=== PATIENT | male | born 1975 | race Caucasian/White ===

== ENCOUNTER 2024-08-14 12:01 | Emergency (ER) | payer OTHER, SELFPAY ==
[2024-08-14 12:13] VITALS: BP 160/88; PULSE 89; O2SAT 96
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
[2024-08-14 12:25] VITALS: BP 147/80; PULSE 104; RESP 18; TEMP 36.9; O2SAT 95; BMI 22.7
[2024-08-14 12:53] LABS: MANUAL DIFF FLAG NO
[2024-08-14 12:54] LABS: Basophils Percent Auto 0.4 % (0-2); Eosinophils Percent Auto 0.2 % (0-4); Hematocrit 36.6 % (42.0-52.0); Imm Gran Abs Auto 0.03 X10*3/uL (0.00-0.03); Imm Gran Pct Auto 0.3 % (0.0-0.4); Lymphocytes Absolute Auto 1.1 X10*3/uL (1.2-4.9); Lymphocytes Percent Auto 11.2 % (20-40); Mean Corpuscular HGB Conc 32.8 g/dl (31.0-36.0); Mean Corpuscular Hemoglobin 27.2 pg (27.0-33.0); Mean Platelet Volume 11.8 fL (9.4-12.4); Monocytes Absolute Auto 0.7 X10*3/uL (0.1-1.2); Monocytes Percent Auto 6.7 % (2-11); Neutrophils Percent Auto 81.2 % (45-73); Platelet Count 249 X10*3/uL (160-400); Red Blood Count 4.41 X10*6/uL (4.60-5.80); Red Cell Distribution Width 12.7 % (11.0-16.0); White Blood Count 9.9 X10*3/uL (4.8-10.8)
[2024-08-14 13:11] LABS: Alanine Aminotransferase 23 U/L (0-40); Albumin Level 4.6 g/dL (3.5-5.0); Alkaline Phosphatase 50 U/L (39-117); Anion Gap 12 (12-20); Aspartate Amino Transferase 32 U/L (5-37); Bilirubin Direct 0.2 mg/dL (0.0-0.5); Bilirubin Total 0.4 mg/dL (0.0-1.0); Blood Urea Nitrogen 14 mg/dL (9-16); Calcium 9.8 mg/dL (8.4-10.2); Carbon Dioxide 32 mmol/L (22-29); Chloride 103 mmol/L (96-108); Creatinine Clr Calc Pharmacy 76.4; Estimated Glomerular Filt Rate > 60; Ethanol < 10 mg/dL; Glucose Random 97 mg/dL (60-115); Potassium 3.7 mmol/L (3.3-5.1); Sodium 143 mmol/L (135-145)
[2024-08-14 13:15] LABS: Appearance Urine Clear; Color Urine Dark Yellow; Glucose Urine UA Negative (Negative); Leukocyte Esterase Urine Negative (Negative); Nitrite Urine Negative (Negative); Specific Gravity - Urine >= 1.030 (1.005-1.025); UMIC TRIGGER UACC YES; Urine Blood Negative (Negative); Urine Ketones 15 mg/dL (Negative); Urine Protein 30 (1+) mg/dL (Neg-Trace)
[2024-08-14 13:22] LABS: Bacteria Urine None Seen (None Seen); Hyaline Casts Urine 0-2 /LPF (0-2); RBC Urine 0-2 /HPF (0-2); Squamous Epithelial Cell Urine 0-2 /HPF (0-2); WBC Urine 0-5 /HPF (0-5)
[2024-08-14 13:25] LABS: Amphetamine Screen Urine Not Detected (Not Detect); Barbiturates, Urine Not Detected (Not Detect); Benzodiazepines Screen Urine Not Detected (Not Detect); Buprenorphine Scr Not Detected (Not Detect); Cannabinoid Screen Urine POSITIVE (Not Detect); Cocaine Screen Urine Not Detected (Not Detect); Fentanyl, urine Not Detected (Not Detect); Methadone Screen, Urine Positive (Not Detect); Opiate Screen Urine Not Detected (Not Detect); Oxycodone Screen Urine Not Detected (Not Detect); Phencyclidine Screen Urine Not Detected (Not Detect)
[2024-08-14 13:39] LABS: Influenza A PCR NEGATIVE (Negative); Influenza B PCR NEGATIVE (Negative); Resp Syncy Virus RNA Qual PCR NEGATIVE (Negative); SARS COV2 PCR INHOUSE NEGATIVE (Negative)
[2024-08-14 14:10] LABS: Folate 14.2 ng/mL (> or = 4.0); Vitamin B12 216 pg/mL (200-900)
--- OUTSIDE RECORDS SUMMARY | 2024-08-14 15:24 | XMS_ITS ---
Author Organization [facility] Address [address], [place] [id number] Care Team Providers Care Clinical Data Specialist Name Role Phone No, PCP Primary Care Provider Desiree Barrios Encounters Encounter Location Date Provider Diagnosis [facility] [address] [place] [phone] 12/24/2023 Desiree Hunt Plan Of Treatment No Information Progress Notes * Chico OWENS ADOB: [birth year] (48 yo M)Acc No.[id number]:12/24/2023 Case Management Patient:?Chico Owens Provider:?Desiree Hunt :1975???Age:48 Y???Sex:Male Miles e:12/24/2023 Address:[facility] Pcp:PCP Raissa Subjective: * Chief Complaints: * ??? * HPI: ???Social Service:?Date of encounter?[id number].?Referral Source?walk-in.?Interpretation for medical provider?housing, Mail seed cone picker.?Follow-up Required:?yes, Type of follow- up:CM.?Pt comprehension?Pt agrees with plan, Patient understood process and assisted with process.?Action taken (old)?form completion: intake, mail intake, authorization to release info.? * Medical History:? Objective: Assessment: Plan: * Treatment: * Images: Billing Information: * Visit Code:? * Procedure Codes:? Care Plan Details* * Sign off status: Completed true * Provider:?Desiree Hunt Date:? Generated for Almita gilbert/Charley/eTransmitting on:?08/14/2024 03:24 PM EST History and Physical Notes * HPI (History of Present Illness) Category Sub-Category Detail Notes Social Service Referral Source walk-in Interpretation for medical provider hous ing, Mail seed cone picker Action taken (old) form completion: int facundo, mail intake, authorization to release info Follow-up Required: yes, Type of follow- up:CM Pt comprehension Pt agrees with plan, Patient understood process and assisted with process Date of encounter [id number]
--- OUTSIDE RECORDS SUMMARY | 2024-08-14 15:24 | XMS_ITS | Patient Health Record ---
Author Organization [facility] Address [address], [place] [phone] Care Team Providers Care City Magistrate Name Role Phone No, PCP Primary Care Provider Desiree Barrios Unavailable Reason For Referral No Information Encounters Encounter Location Date Provider Diagnosis [facility] [address] [place], [place] [phone] 12/24/2023 Desiree Hunt [facility] [address] [place], [place] [phone] 12/21/2023 Desiree Hunt Plan Of Treatment No Information Insurance Providers Payer Name Payer Address Payer Phone Subscriber Number Group Number Insured Name Patient Relationship to Insured Coverage Start Date Coverage End Date [place] Medicaid PCC [address] [place], [place] [id number] Chico Owens Self - patient is the insured
--- OUTSIDE RECORDS SUMMARY | 2024-08-14 15:24 | XMS_ITS ---
Author Organization [facility] Address [address] [place], [place] [phone] Care Team Providers Care Devulcanizer Loader Name Role Phone No, PCP Primary Care Provider Desiree Barrios Encounters Encounter Location Date Provider Diagnosis [facility] [address] [place] [phone] 12/21/2023 Desiree Hunt Plan Of Treatment No Information Progress Notes * Chico OWENS ADOB: [birth year] (48 yo M)Acc No.[id number]:12/21/2023 Case Management Patient:?Chico Owens Provider:?Desiree Hunt :1975???Age:48 Y???Sex:Male Miles e:12/21/2023 Address:[facility] Pcp:PCP Raissa Subjective: * Chief Complaints: * ??? * HPI: ???Social Service:?Date of encounter?[id number].?Referral Source?walk-in, self.?Interpretation for medical provider?housing, Mail warehouse order picker.?Follow-up Required:?yes, Type of follow-up:CM.?Pt comprehension?Pt agrees with plan, Patient understood process and assisted with process.?Action taken (old)?form completion: intake, authorization to release info.? * Medical History:? Objective: Assessment: Plan: * Treatment: * Images: Billing Information: * Visit Code:? * Procedure Codes:? Care Plan Details* * Sign off status: Completed true * Provider:?Desiree Hunt Date:? Generated for Almita gilbert/Charley/eTransmitting on:?08/14/2024 03:24 PM EST History and Physical Notes * HPI (History of Present Illness) Category Sub-Category Detail Notes Social Service Referral Source walk-in, self Interpretation for medical provider hous ing, Mail warehouse order picker Action taken (old) form completion: int facundo, authorization to release info Follow-up Required: yes, Type of follow- up:CM Pt comprehension Pt agrees with plan, Patient understood process and assisted with process Date of encounter [phone]
[2024-08-14 16:20] VITALS: BP 194/86; PULSE 73; RESP 12; TEMP 37.2; O2SAT 97
--- NOTE | 2024-08-14 16:35 | PC.NURSE ---
patient given back belongings, ambulated off of unit with family, gait steady
== END 2024-08-14 16:35 | disposition home or self-care (01) ==
PROVIDERS: Physician Assistant; Emergency Provider Emergency Medicine
DX: F29 Unspecified psychosis not due to a substance or known physiological condition (principal); R46.2 Strange and inexplicable behavior; F19.10 Other psychoactive substance abuse, uncomplicated; Z03.818 Encounter for observation for suspected exposure to other biological agents ruled out
CPT/HCPCS: 0241U; 36415; 80048; 80076; 80307; 81001; 82607; 82746; 83735; 85025; 99282; 99284; S9485

== ENCOUNTER 2024-11-27 07:44 | Inpatient (IN) | payer MEDICAID, SELFPAY ==
[2024-11-27] VITALS (8 sets, daily range): BP systolic 122–139; BP diastolic 60–84; PULSE 76–115; RESP 16–22; TEMP 36.6–37.3; O2SAT 94–98; BMI 23.5; BMI 25.5
--- NOTE | ~2024-11-27 | CT_ITS ---
EXAMINATION: CT PELVIS WITH CONTRAST CLINICAL INFORMATION: Buttock abscess, concern for tracking. COMPARISON: None available. TECHNIQUE: Helical scanning was performed with submillimeter collimation through the pelvis with the use of oral contrast and during bolus intravenous injection of 100 mL of Omnipaque 350 intravenous contrast. Sagittal and coronal multiplanar 2-D reconstructions were obtained. This CT examination was performed using dose optimization techniques as appropriate, variously including the following: *Automated exposure control *Adjustment of mA and/or kV according to patient size (this includes techniques or standardized protocols for targeted exams where dose is matched to indication/reason for exam; i.e. extremities or head) *Use of iterative reconstruction technique FINDINGS: There is skin thickening and subcutaneous infiltration of the left inferior gluteal crease. There is no gross drainable fluid collection or abscess evident. There is no sinus tract or fistulous tract. The ischio anal fat is preserved. The anal verge, perineal soft tissues and levator ani musculature is normal in attenuation and appearance. There are a few prominent inguinal nodes more notable on the left. These are likely reactive. Intrapelvic structures are normal including the urinary bladder and prostate gland. Bowel structures appear normal. A normal appendix is visualized. There is no pelvic ascites or intrapelvic fluid collection. The aorta and iliac arteries are normal. The pelvic girdle musculature is normal in attenuation and appearance. There is no suspicious osseous abnormality. CT/CT pelvis w IV con IMPRESSION: 1. Skin thickening with subcutaneous fat infiltration involving the left inferior gluteal crease, without evidence of fistulous or sinus tract. No definite involvement of the ischio anal fat, perineal soft tissues, or anal verge. 2. No drainable fluid collection evident by CT. 3. Left inguinal lymphadenopathy, presumably reactive. Electronically signed by: Mic Harmon MD 11/27/2024 09:57 AM EDT
--- NOTE | 2024-11-27 08:05 | ED_ITS ---
HPI - General Adult General Chief complaint: Skin/Abscess/Foreign Body Stated complaint: Abscess, infection? Time Seen by Provider: 11/27/24 08:03 Source: patient and family (patient's ) Mode of arrival: ambulatory Limitations: no limitations History of Present Illness ED Provider: Leticia Kim PA-C HPI narrative: Patient is a 49 year old assigned male at with a history of IVDU presenting to the emergency department today with left buttock pain / swelling. Patient states that over the last few days he has noticed swelling to his left buttock that has only worsened and randomly drained. Patient denies any dizziness, lightheadedness, abdominal pain, nausea, vomiting, fever, chills, blurry vision, double vision, loss of vision, chest pain, difficulty breathing, shortness of breath, back pain, night sweats, pain with urination, increased urinary frequency, increased urinary urgency, blood in his urine or stool, syncope or a near syncopal episode, recent trauma or falls, bowel incontinence, bladder incontinence, or any other complaints at this time. Exacerbating factors: none Associated symptoms: denies other symptoms Related Data Allergies Allergy/AdvReac Type Severity Reaction Status Date / Time cephalexin (From Keflex) Allergy Unknown Verified 11/27/24 08:21 doxycycline Allergy Unknown Verified 11/27/24 08:21 Review of Systems 2 Constitutional: Constitutional: Reports no additional constitutional complaints, Denies chills, Denies fever(s) and Denies night sweats Eyes: Eyes: Reports no additional eye complaints, Denies blurry vision, Denies change in vision, Denies diplopia, Denies eye discharge, Denies loss of vision and Denies eye pain ENT: Denies dizziness Cardiovascular: Cardiovascular: Reports no additional cardiovascular complaints, Denies chest pain, Denies lightheadedness, Denies Loss of Consciousness and Denies dyspnea Respiratory: Respiratory: Reports no additional respiratory complaints and Denies dyspnea Gastrointestinal: Gastrointestinal: Reports no additional gastrointestinal complaints, Denies abdominal pain, Denies melena, Denies hematochezia, Denies change in bowel habits and Denies change in stool character Genitourinary: Genitourinary: Reports no additional male genitourinary complaints, Denies hematuria, Denies oliguria, Denies difficulty urinating, Denies dysuria, Denies urinary frequency, Denies urinary hesitancy, Denies urinary incontinence and Denies urinary urgency Musculoskeletal: Musculoskeletal: Reports no additional musculoskeletal complaints, Denies numbness and Denies tingling Integumentary/Breasts: Comments: left buttock swelling / redness Neurologic: Denies dizziness, Denies loss of vision, Denies numbness and Denies tingling Psychiatric: Psychiatric: Reports no additional psychiatric complaints Endocrine: Endocrine: Reports no additional endocrine complaints Hematologic/Lymphatic: Hematologic/Lymphatic: Reports no additional hematologic/lymphatic complaints Allergic/Immunologic: Allergic/Immunologic: Reports no additional allergic/immunologic complaints PMFSH Past Medical History Attestation statement: The following information was validated with the patient. (all information validated with the patient's ) Source: old records reviewed, obtained from family (patient's provided additional history and confirmed the history provided by the patient. ) and nursing notes reviewed Social History Social History Alcohol intake: never Smoked in Last 30 Days: Yes Use of substances other than those prescribed or required for medical reasons: Yes Substance Use Type: Former Substance User and Marijuana Advance Directives: No Advance Directives Information Provided: No Physical Exam ED Vital Signs: Vital Signs - 24 hr 11/27/24 08:02 11/27/24 08:15 11/27/24 09:13 Temperature 99.2 F 99.2 F 98.9 F Pulse Rate 115 H 115 H 95 Respiratory Rate 20 22 H 18 Blood Pressure 130/84 130/84 130/83 Pulse Oximetry 96 96 97 Oxygen Delivery Method Room Air Room Air Room Air 11/27/24 09:43 Temperature 98.2 F Pulse Rate 90 Respiratory Rate 18 Blood Pressure 139/76 Pulse Oximetry 97 Oxygen Delivery Method Room Air BMI result Body Mass Index 23.5 Const General: cooperative, no acute distress, alert and awake Nutritional Appearance: well nourished Orientation/consciousness: patient oriented x3 HENMT Head: Yes normal to inspection and Yes atraumatic Ears: hearing grossly normal bilaterally and external ears normal General nose exam: Normal external nose present, no nasal discharge noted and no epistaxis Face and sinus: Yes normal facial exam, No abrasion and No laceration Mouth: Normal oral and palatal mucosa present, no drooling and no muffled voice Eyes General: appearance normal, both eyes and all related structures Periorbital: periorbital findings normal Eyelids: Yes eyelids normal Conjunctivae: conjunctivae normal Pupils: Equal, round and reactive pupils present EOM: EOMs intact bilaterally Neck Neck: Yes normal visual inspection, Yes full ROM and Yes no lymphadenopathy Resp Effort & Inspection: normal respiratory effort and able to speak in complete sentences GI Other: Neuro General: patient oriented x3, moves all extremities and CN's II-XI intact bilaterally Cranial nerves: Yes Equal, round and reactive pupils present Cognition (Neuro): normal cognition Extrem General: Yes normal to inspection, Yes full ROM and Yes capillary refill normal Psych Appearance: grossly normal Mental Status: mental status grossly normal Affect: normal affect Attitude: cooperative Thought process: Normal thought process present Thought content: Normal thought content present Insight: Good insight present (Psych) Medications Administered Discontinued Medications Generic Name Dose Route Start Last Admin Trade Name Freq PRN Reason Stop Dose Admin Vancomycin HCl 1,000 mg/ 270 mls @ 270 mls/hr 11/27/24 08:20 11/27/24 10:56 Sodium Chloride IV 11/27/24 09:19 270 mls/hr ONCE ONE Administration Piperacillin Sod/Tazobactam 50 mls @ 100 mls/hr 11/27/24 08:20 11/27/24 10:35 Sod 3.375 gm/ Sodium Chloride IV 11/27/24 08:49 Infused ONCE ONE Infusion Acetaminophen 1,000 mg in 100 mls @ 400 mls/hr 11/27/24 08:20 11/27/24 09:20 Ofirmev IV 11/27/24 08:34 Infused ONCE ONE Infusion Iohexol 100 ml 11/27/24 09:39 11/27/24 09:40 Iohexol 350 Mg/Ml 100 Ml Infus..Btl IV 11/27/24 09:40 85 ml ONCE ONE Administration Ketorolac Tromethamine 15 mg 11/27/24 08:20 11/27/24 09:03 Ketorolac Tromethamine 15 Mg/Ml Vial IVPUSH 11/27/24 08:21 15 mg ONCE ONE Administration Medical Decision Making Medical Decision Making [facility] Narrative: Patient is a 49 year old assigned male at with a history of IVDU presenting to the emergency department today with left buttock pain / swelling. Patient's physical exam was as noted in the physical exam portion of this note. Patient's blood work showed a WBC count of 17.4, ESR 58, and CRP of 16.94. Patient's CT pelvis showed skin thickening with subcutaneous fat infiltration involving the left inferior gluteal crease. I was suspicious of sepsis in this patient at 0820. Patient was given IV Vancomycin and Zosyn. I spoke with the hospitalist team who agreed to admission. I explained my physical exam findings as well as all test results to the patient. I answered all questions asked by the patient. Patient and the patient's verbalized agreement and understanding with this treatment plan and admission. Differential Diagnosis Differential Diagnoses: The differential diagnosis associated with the presentation includes Abscess Cellulitis Sepsis Admission/Observation Consideration of admission/observation: Escalation of care including admission/observation considered Patient admitted as noted in the MDM Rationale portion of this note. Consult Healthcare Provider Management of the patient was discussed with: Hospitalist (agreed to admission as noted in the MDM Rationale portion of this note. ) Lab Data [facility] Lab Attestation statement: I reviewed the patient's lab results. My interpretation of these results are in the MDM Rationale portion of this note. 11/27/24 08:49 11/27/24 08:49 Labs: Lab Results 11/27/24 Range/Units 08:49 WBC 17.4 H (4.8-10.8) X10*3/uL RBC 4.67 (4.60-5.80) X10*6/uL Hgb 12.7 L (14.0-18.0) g/dl Hct 39.3 L (42.0-52.0) % MCV 84.2 (80.0-98.0) fL MCH 27.2 (27.0-33.0) pg MCHC 32.3 (31.0-36.0) g/dl RDW 12.3 (11.0-16.0) % Plt Count 228 (160-400) X10*3/uL MPV 11.5 (9.4-12.4) fL Immature Gran % (Auto) 0.4 (0.0-0.4) % Neut % (Auto) 81.3 H (45-73) % Lymph % (Auto) 9.2 L (20-40) % [place] % (Auto) 8.8 (2-11) % Eos % (Auto) 0.1 (0-4) % Baso % (Auto) 0.2 (0-2) % Lymph # (Auto) 1.6 (1.2-4.9) X10*3/uL [place] # (Auto) 1.5 H (0.1-1.2) X10*3/uL Eos # (Auto) 0.0 (0.0-0.4) X10*3/uL Baso # (Auto) 0.0 (0.0-0.2) X10*3/uL Abs Immat Gran (auto) 0.07 H (0.00-0.03) X10*3/uL Absolute Neuts (auto) 14.2 H (2.0-8.3) x10*3/uL Absolute Nucleated RBC 0.000 (0.0-0.012) X10*3/uL Nucleated RBC % (auto) 0.0 (0.0-0.2) /100WBC Smear Tech's Comments VERIFIED ESR 58 H (0-15) MM/HR Sodium 140 (135-145) mmol/L Potassium 4.2 (3.3-5.1) mmol/L Chloride 102 (96-108) mmol/L Carbon Dioxide 30 H (22-29) mmol/L Anion Gap 12 (12-20) BUN 15 (9-16) mg/dL Creatinine 1.00 (0.5-1.4) mg/dL Estim Creat Clear Calc 84.4 Estimated GFR > 60 Random Glucose 108 (60-115) mg/dL Lactic Acid 1.6 (0.5-2.0) mmol/L Calcium 9.7 (8.4-10.2) mg/dL Magnesium 1.9 (1.6-2.6) mg/dL Total Bilirubin 0.5 (0.0-1.0) mg/dL AST 20 (5-37) U/L ALT 15 (0-40) U/L Alkaline Phosphatase 64 (39-117) U/L C-Reactive Protein 16.94 H (< or = 0.50) mg/dL Total Protein 8.4 H (6.5-8.0) g/dL Albumin 4.7 (3.5-5.0) g/dL Independent Interpretation I performed an independent interpretation of an: CT Scan (pelvis) Interpretation: My interpretation is in agreement with the radiologist's impression of this imaging study. L Report Number: [id number]: Total DLP = 232.00 mGy-cm EXAMINATION: CT PELVIS WITH CONTRAST CLINICAL INFORMATION: Buttock abscess, concern for tracking. COMPARISON: None available. TECHNIQUE: Helical scanning was performed with submillimeter collimation through the pelvis with the use of oral contrast and during bolus intravenous injection of 100 mL of Omnipaque 350 intravenous contrast. Sagittal and coronal multiplanar 2-D reconstructions were obtained. This CT examination was performed using dose optimization techniques as appropriate, variously including the following: *Automated exposure control *Adjustment of mA and/or kV according to patient size (this includes techniques or standardized protocols for targeted exams where dose is matched to indication/reason for exam; i.e. extremities or head) *Use of iterative reconstruction technique FINDINGS: There is skin thickening and subcutaneous infiltration of the left inferior gluteal crease. There is no gross drainable fluid collection or abscess evident. There is no sinus tract or fistulous tract. The ischio anal fat is preserved. The anal verge, perineal soft tissues and levator ani musculature is normal in attenuation and appearance. There are a few prominent inguinal nodes more notable on the left. These are likely reactive. Intrapelvic structures are normal including the urinary bladder and prostate gland. Bowel structures appear normal. A normal appendix is visualized. There is no pelvic ascites or intrapelvic fluid collection. The aorta and iliac arteries are normal. The pelvic girdle musculature is normal in attenuation and appearance. There is no suspicious osseous abnormality. CT/CT pelvis w IV con IMPRESSION: 1. Skin thickening with subcutaneous fat infiltration involving the left inferior gluteal crease, without evidence of fistulous or sinus tract. No definite involvement of the ischio anal fat, perineal soft tissues, or anal verge. 2. No drainable fluid collection evident by CT. 3. Left inguinal lymphadenopathy, presumably reactive. Electronically signed by: Mic Harmon MD 11/27/2024 09:57 AM EDT Dictated By: Mic Harmon MD Signed By: Electronically signed by Mic Harmon MD 11/27/24 0957 Radiology Impression Discussion of test interpretation with radiology: I have reviewed the radiologist's reading. Independent Historian Clinical information obtained from an independent historian. History obtained from or confirmed by: Spouse (Patient's provided additional history and confirmed the history provided by the patient. ) Critical Care Time Critical Care Time Critical Care Time: Yes Total Critical Care Time: 46 Attestation: I spent 46 minutes of Critical Care Time with this patient. This does not include time spent on separately reported billable procedures. Discharge Plan Discharge Clinical Impression: Cellulitis, Sepsis Patient Disposition: Admitted As Inpatient Print Language: Hong Konger
--- OUTSIDE RECORDS SUMMARY | 2024-11-27 08:49 | XMS_ITS | Patient Health Record ---
Author Organization [facility] Address [address], [place] [id number] Care Team Providers Care Big Data Engineer Name Role Phone [employer] - DO NOT USE, no PCP Primary Care Prov ider Unavailable Desiree Hunt Unavailable Reason For Referral No Information Encounters Encounter Location Date Provider Diagnosis [facility] [address], [place] [id number] 12/24/2023 Desiree Hunt [facility] [address] [place] [phone] 12/21/2023 Desiree Hunt Plan Of Treatment No Information Insurance Providers Payer Name Payer Address Payer Phone Subscriber Number Group Number Insured Name Patient Relationship to Insured Coverage Start Date Coverage End Date [place] Medicaid [facility] [address] [place], [place] [id number] Cihco Owens Self - patient is the insured 4
[2024-11-27 08:56] LABS: Basophils Percent Auto 0.2 % (0-2); Eosinophils Percent Auto 0.1 % (0-4); Hematocrit 39.3 % (42.0-52.0); Hemoglobin 12.7 g/dl (14.0-18.0); Imm Gran Abs Auto 0.07 X10*3/uL (0.00-0.03); Imm Gran Pct Auto 0.4 % (0.0-0.4); Lymphocytes Absolute Auto 1.6 X10*3/uL (1.2-4.9); Lymphocytes Percent Auto 9.2 % (20-40); MANUAL DIFF FLAG SCAN; Mean Corpuscular HGB Conc 32.3 g/dl (31.0-36.0); Mean Corpuscular Hemoglobin 27.2 pg (27.0-33.0); Mean Corpuscular Volume 84.2 fL (80.0-98.0); Mean Platelet Volume 11.5 fL (9.4-12.4); Monocytes Absolute Auto 1.5 X10*3/uL (0.1-1.2); Monocytes Percent Auto 8.8 % (2-11); Neutrophils Absolute Auto 14.2 x10*3/uL (2.0-8.3); Neutrophils Percent Auto 81.3 % (45-73); Platelet Count 228 X10*3/uL (160-400); Red Blood Count 4.67 X10*6/uL (4.60-5.80); Red Cell Distribution Width 12.3 % (11.0-16.0); SCAN SMEAR FLAG 1; White Blood Count 17.4 X10*3/uL (4.8-10.8)
[2024-11-27] MEDS: Acetaminophen 1,000 MG/100 ML PIGGYBACK 400 MG IV (09:02)
[2024-11-27] MEDS: Ketorolac Tromethamine 15 MG/ML VIAL IVPUSH (09:03)
[2024-11-27] MEDS: Piperacillin Sodium/Tazobactam 3.375 GM in 0.9 % Sodium Chloride 50 ML IV (09:06)
[2024-11-27 09:11] LABS: Alanine Aminotransferase 15 U/L (0-40); Albumin Level 4.7 g/dL (3.5-5.0); Alkaline Phosphatase 64 U/L (39-117); Anion Gap 12 (12-20); Aspartate Amino Transferase 20 U/L (5-37); Bilirubin Total 0.5 mg/dL (0.0-1.0); Blood Urea Nitrogen 15 mg/dL (9-16); C Reactive Protein 16.94 mg/dL (< or = 0.50); Calcium 9.7 mg/dL (8.4-10.2); Carbon Dioxide 30 mmol/L (22-29); Chloride 102 mmol/L (96-108); Creatinine Clr Calc Pharmacy 84.4; Estimated Glomerular Filt Rate > 60; Glucose Random 108 mg/dL (60-115); Lactic Acid 1.6 mmol/L (0.5-2.0); Magnesium 1.9 mg/dL (1.6-2.6); Potassium 4.2 mmol/L (3.3-5.1); Sodium 140 mmol/L (135-145); Total Protein 8.4 g/dL (6.5-8.0)
[2024-11-27 09:19] LABS: SLIDE REVIEW VERIFIED
[2024-11-27 09:37] LABS: Erythrocyte Sedimentation Rate 58 MM/HR (0-15)
[2024-11-27] MEDS: iohexoL 350 MG/ML 100 ML INFUS..BTL IV (09:40)
--- NOTE | 2024-11-27 10:21 | PC.NURSE ---
Abx have been slow to infuse since Pt was brought to CT and Abx were not reconnected. Pt is aware of plan for admission.
[2024-11-27] MEDS: vancomycin HCL 1,000 MG in 0.9 % Sodium Chloride 250 ML 270 MG IV (10:56)
--- NOTE | 2024-11-27 11:23 | P.HPHOSP_ITS ---
History of Present Illness Date of Service: 11/27/24 Chief Complaint: L glueal pain The patient is a 49-year-old male with a past medical history of chronic opiate dependence on methadone maintenance therapy with more than 3 years of sobriety who presents to the emergency room with a several day history of worsening erythema, drainage and pain of the left gluteus. The patient endorses that his symptoms began with ?pimple? which progressed over the last 4 days with extending erythema as well as size. Reports that several days prior it began draining. He reported chills with subjective fevers at home. He reports his last opiate misuse was more than 3 years ago. In the emergency room the patient was found to have elevated inflammatory markers along with leukocytosis of 17,000. He presented initially with tachycardia in the 110s. His lactate is normal. CT of the pelvis with IV contrast revealed skin thickening with subcutaneous fat infiltration involving the left inferior gluteal crease without evidence of fistula or sinus tract. There was no drainable fluid collection evident by CT. Left inguinal lymphadenopathy was presumably reactive. The patient was given IV antibiotics, IV toradol, tylenol and now will be admitted for further care. Review of Systems 2 Review of Systems: Negative except HPI/interval history. [facility] Social History Alcohol intake: never Smoked in Last 30 Days: Yes Use of substances other than those prescribed or required for medical reasons: Yes Substance Use Type: Former Substance User and Marijuana Advance Directives: No Advance Directives Information Provided: No Meds Allergies Allergy/AdvReac Type Severity Reaction Status Date / Time cephalexin (From Keflex) Allergy Unknown Verified 11/27/24 08:21 doxycycline Allergy Unknown Verified 11/27/24 08:21 Active Medications: Current Medications Acetaminophen (Acetaminophen 325 Mg Tablet) 650 mg PO Q6H PRN PRN Reason: Pain, Mild 1-3,fever,headache Calcium Carbonate (Calcium Carbonate 750 Mg Tab.Chew) 750 mg PO Q4H PRN PRN Reason: Heartburn Enoxaparin Sodium (Enoxaparin Sodium 40 Mg/0.4 Ml Syringe) 40 mg SUBCUT Q24H RAFITA Ketorolac Tromethamine (Ketorolac Tromethamine 30 Mg/Ml Vial) 30 mg IVPUSH Q6H PRN PRN Reason: Pain, Severe (Pain Scale 7-10) Stop: 12/02/24 11:18 Magnesium Hydroxide (Milk Of Magnesia 30 Ml Oral.Susp) 30 ml PO DAILY PRN PRN Reason: Constipation Melatonin (Melatonin 3 Mg Tablet) 6 mg PO BEDTIME PRN PRN Reason: Insomnia Sodium Chloride (0.9 % Sodium Chloride Flush 3 Ml Syringe) 3 ml IVFLUSH QSHIFT RAFITA Physical Exam 2 Vital Signs and Narrative: Vital Signs: Last Vital Signs Temp 98.2 F 11/27/24 09:43 Pulse 90 11/27/24 09:43 Resp 18 11/27/24 09:43 BP 139/76 11/27/24 09:43 Pulse Ox 97 11/27/24 09:43 O2 Del Method Room Air 11/27/24 09:43 BMI result Body Mass Index 23.5 Const: Other: Constitutional - Awake and Alert, No apparent distress Eyes - PERRLA, EOMI Cardiovascular - S1S2, RRR, No edema Respiratory - Normal lung expansion, Normal respiratory effort, No respiratory distress, CTA bilaterally Gastrointestinal - NT / ND; +BS; No rebound or guarding - No CVA tenderness Extremities - no calf tenderness bilaterally, no swelling Musculoskeletal - Normal inspection, normal ROM Skin - L perianal/gluteal fold extensive erythema with about a 4-5 CM area of induration with open pustular drainage Neurological - Alert & oriented x3, No focal deficit Psychological - Appropriate affect Results Labs 11/27/24 08:49 11/27/24 08:49 Labs: Laboratory Results - last 24 hr 11/27/24 08:49 MCV 84.2 MCH 27.2 MCHC 32.3 RDW 12.3 Plt Count 228 MPV 11.5 Immature Gran % (Auto) 0.4 Neut % (Auto) 81.3 H Lymph % (Auto) 9.2 L [place] % (Auto) 8.8 Eos % (Auto) 0.1 Baso % (Auto) 0.2 Lymph # (Auto) 1.6 [place] # (Auto) 1.5 H Eos # (Auto) 0.0 Baso # (Auto) 0.0 Abs Immat Gran (auto) 0.07 H Absolute Neuts (auto) 14.2 H Absolute Nucleated RBC 0.000 Nucleated RBC % (auto) 0.0 Smear Tech's Comments VERIFIED ESR 58 H Anion Gap 12 Estim Creat Clear Calc 84.4 Estimated GFR > 60 Random Glucose 108 Lactic Acid 1.6 Calcium 9.7 Magnesium 1.9 Total Bilirubin 0.5 AST 20 ALT 15 Alkaline Phosphatase 64 C-Reactive Protein 16.94 H Total Protein 8.4 H Albumin 4.7 Imaging Radiologist's Impressions: Impressions Pelvis CT 11/27/24 08:33 IMPRESSION: 1. Skin thickening with subcutaneous fat infiltration involving the left inferior gluteal crease, without evidence of fistulous or sinus tract. No definite involvement of the ischio anal fat, perineal soft tissues, or anal verge. 2. No drainable fluid collection evident by CT. 3. Left inguinal lymphadenopathy, presumably reactive. Electronically signed by: Mci Harmon MD 11/27/2024 09:57 AM EDT RP Assessment and Plan (1) Cellulitis: Status: Acute (2) Sepsis: Status: Acute Plan 49 yo M with a prior history of IVDU, currently on methadone therapy (sobriety > 3 years) who presents with progressive worsening of L gluteal infeciton He is found to be septic with extensive cellulitis +/- early abscess 1. Sepsis due to L gluteal cellulitis prior IVDU, but denied use > 3 years will given vancomcyin/zosyn IVF surgical input follow up cultures 2. Chronic opiate dependence on methadone, will continue with verified by pharmacy Full Code DVT pptx - Lovenox Pt with sepsis secondary to L gluteal cellulitis with possible early abscess, requiring broad spectrum IV antibotics and surgical evaluation. Therefore his hospitalization is expected to require at a minimum 2 midnights, hence he will be admitted as inpatient. Quality Stroke Does the patient have a stroke diagnosis?: No VTE Prior VTE?: No VTE Risk Level:: Medical - moderate - high VTE Device Contraindication: N/A - Device Ordered VTE Drug Contraindication: N/A - Med Ordered
--- NOTE | 2024-11-27 11:31 | PHA.PROG ---
Admission Date/Time: November 27, 2024 10:56 Indication: Sepsis Weight in k.039 kg Adjusted body weight in Kg: [place] body weight in Kg: Obesity Dosing Indication % IBW: BMI 23.5 Serum Creatinine - Last 168 Hours 11/27/24 08:49 Creatinine 1.00 Estimated CrCl and GFR - Last 168 Hours 11/27/24 08:49 Estim Creat Clear Calc 84.4 Estimated GFR > 60 Vancomycin Loading Dose: 1000mg X1 Current Vancomycin Dosing Regimen: 1000mg Q12H Vancomycin Monitoring using AUC goal of 400 - 600 range with trough as surrogate marker: 562 Date and Time for next Vancomycin Level to be drawn: 11/28 @1700 Pharmacist Comments on Vancomycin Plan: Pt loaded wrong, starting 1000mg Q12H - 8 hours after initial load. Predicted trough 17.7. Vancomycin dosing will take advantage of [employer] as a clinical decision support tool that uses Bayesian modeling to calculate individual patient's pharmacokinetic parameters and forecast the patient's drug concentration time course with the target goal AUC 24 range of 400 - 600 mg/L/hr.
[2024-11-27] MEDS: Lactated Ringers 1,000 ML 100 ML IVCONT (11:59)
[2024-11-27] MEDS: Enoxaparin Sodium 40 MG/0.4 ML SYRINGE SUBCUT (11:59)
--- NOTE | 2024-11-27 12:24 | PHA.MEDREC ---
Addendum entered by Kerwin Mcginnis PharmD 11/27/24 13:06: reviewed Original Note: Pharmacy Consult ? Medication Reconciliation Pharmacy has completed the medication reconciliation. Spoke with pt and he confirmed he takes Methadone 80mg daily and took it today. Pt states he took some Nyquil last nigh to help with pain he was experiencing.
--- NOTE | 2024-11-27 13:28 | P.CONGS_ITS ---
History of Present Illness Consult details Consult date: 11/27/24 Narrative: 49 yo M with a prior history of IVDU, currently on methadone therapy (sobriety > 3 years) who presents with progressive worsening of L gluteal infection. Patient states that he had what appeared to be a pimple in the area about 4 days ago. This continued to get larger and more painful over the next few days. He was concerned when it began draining pus and there was areas of black on the wound. Patient was started on IV vanco and zosyn. in te ED, CT imaging showing phlegmonous changes in the left buttock. No evidence of fluid collection. He currently endorse pain in the area, denies fever or chills. Denies any preceding injury or known insect bite to the area. Review of Systems 2 Review of Systems: Yes all other systems are reviewed and are negative PMFSH Social History Social History Household Members: Spouse Housing: Homeless Housing Other:: Group Home ([facility]) Alcohol intake: never Patient Tobacco Use Status: Current everyday Tobacco user e-Cigarette/Vaping Use: Currently Using Substance Use Type: Former Substance User and Marijuana Meds Allergies Allergy/AdvReac Type Severity Reaction Status Date / Time cephalexin (From Keflex) Allergy Unknown Verified 11/27/24 08:21 doxycycline Allergy Unknown Verified 11/27/24 08:21 Active Medications: Current Medications Acetaminophen (Acetaminophen 325 Mg Tablet) 650 mg PO Q6H PRN PRN Reason: Pain, Mild 1-3,fever,headache Calcium Carbonate (Calcium Carbonate 750 Mg Tab.Chew) 750 mg PO Q4H PRN PRN Reason: Heartburn Enoxaparin Sodium (Enoxaparin Sodium 40 Mg/0.4 Ml Syringe) 40 mg SUBCUT Q24H [facility] Last Admin: 11/27/24 11:59 Dose: 40 mg Lactated Ringer's (Lr) 1,000 mls @ 100 mls/hr IVCONT .Q10H [facility] Stop: 11/28/24 07:29 Last Admin: 11/27/24 11:59 Dose: 100 mls/hr Vancomycin HCl 1,000 mg/ (Sodium Chloride) 270 mls @ 270 mls/hr IV Q12H [facility] Piperacillin Sod/Tazobactam (Sod 4.5 gm/ Sodium Chloride) 100 mls @ 200 mls/hr IV Q6H [facility] Ketorolac Tromethamine (Ketorolac Tromethamine 30 Mg/Ml Vial) 30 mg IVPUSH Q6H PRN PRN Reason: Pain, Severe (Pain Scale 7-10) Stop: 12/02/24 11:18 Magnesium Hydroxide (Milk Of Magnesia 30 Ml Oral.Susp) 30 ml PO DAILY PRN PRN Reason: Constipation Melatonin (Melatonin 3 Mg Tablet) 6 mg PO BEDTIME PRN PRN Reason: Insomnia Pharmacy Consult (Consult Rx Vancomycin Dosing) 1 each MISCELLANE DAILY PRN PRN Reason: Consult order Sodium Chloride (0.9 % Sodium Chloride Flush 3 Ml Syringe) 3 ml IVFLUSH QSHIFT [facility] Home Medications ?Medication ?Instructions ?Recorded ?Confirmed ?Last Taken ?Type [id number]-LY-acetaminophen 30 ml PO Q4-6H PRN Coug h/pain 11/27/24 11/27/24 11/26/24 History 6.25 mg-30 [id number]/15mL oral liqd methadone 10 mg/mL oral 80 mg PO DAILY 11/27/24 Unk nown History concentrate (Methadone Intensol) Physical Exam 2 Vital Signs: Vital Signs: Last Vital Signs Temp 98.2 F 11/27/24 12:44 Pulse 77 11/27/24 12:44 Resp 18 11/27/24 12:44 BP 124/78 11/27/24 12:44 Pulse Ox 97 11/27/24 12:44 O2 Del Method Room Air 11/27/24 12:44 BMI result Body Mass Index 25.5 Const: General: comfortable and no acute distress O rientation/consciousness: patient oriented x3 Resp: Effort & Inspection: normal respiratory effort and able to speak in complete sentences Skin: Other: 3x3 cm wound with scant purulent dischar ge. The surrounding area is erythematous and firm. No palpable fluid collection. Neuro: General: patient oriented x3 Results Labs 11/27/24 08:49 11/27/24 08:49 Labs: Abnormal lab results 11/27/24 Range/Units 08:49 WBC 17.4 H (4.8-10.8) X10*3/uL Hgb 12.7 L (14.0-18.0) g/dl Hct 39.3 L (42.0-52.0) % Neut % (Auto) 81.3 H (45-73) % Lymph % (Auto) 9.2 L (20-40) % [place] # (Auto) 1.5 H (0.1-1.2) X10*3/uL Abs Immat Gran (auto) 0.07 H (0.00-0.03) X10*3/uL Absolute Neuts (auto) 14.2 H (2.0-8.3) x10*3/uL ESR 58 H (0-15) MM/HR Carbon Dioxide 30 H (22-29) mmol/L C-Reactive Protein 16.94 H (< or = 0.50) mg/dL Total Protein 8.4 H (6.5-8.0) g/dL Short CBC 11/27/24 Range/Units 08:49 WBC 17.4 H (4.8-10.8) X10*3/uL Hgb 12.7 L (14.0-18.0) g/dl Hct 39.3 L (42.0-52.0) % Plt Count 228 (160-400) X10*3/uL BMP 11/27/24 08:49 Sodium 140 Potassium 4.2 Chloride 102 Carbon Dioxide 30 H BUN 15 Creatinine 1.00 Calcium 9.7 Liver Function 11/27/24 Range/Units 08:49 Total Bilirubin 0.5 (0.0-1.0) mg/dL AST 20 (5-37) U/L ALT 15 (0-40) U/L Alkaline Phosphatase 64 (39-117) U/L Albumin 4.7 (3.5-5.0) g/dL All other labs normal. Assessment and Plan (1) Cellulitis: Qualifiers: Site of cellulitis: buttock Qualified Code(s): L03.317 - Cellulitis of buttock Status: Acute Plan 49 yo M with a prior history of IVDU, currently on methadone therapy (sobriety > 3 years) seen in consult for progressive worsening of L gluteal infection. On exam the patient has a 3x3 cm wound with scant drainage, without palpable fluid collection, surrouding erythema and induration. There was no palpabkle fluid collection and a small amount of discharge was able to be expressed. The erythema seems to have improved slightly from the images from ED. CT imaging shows phlegmonous changes in the left gluteus without abscess. Patient currently on IV vanco and zosyn. Given the lack of fluid collection on exam and on CT, no indication for I&D or surgical intervention. Would recommend continuing IV abx and fluids. We will follow closely for development of an abscess. Procedures Date of Service Date of Service: 11/27/24
--- NOTE | 2024-11-27 14:08 | HO.SKINPHOTO ---
Location: Left Buttock
[2024-11-27] MEDS: Piperacillin Sodium/Tazobactam 4.5 GM in 0.9 % Sodium Chloride 100 ML IV ×2 (15:53→23:15)
[2024-11-27] MEDS: 0.9 % Sodium Chloride Flush 3 ML SYRINGE IVFLUSH ×2 (15:55→23:17)
--- NOTE | 2024-11-27 17:16 | PC.NURSE ---
Concern for IV infiltrate due to swelling in left forearm after Zosyn infusion. IV removed. Coco Herron contacted and advised no treatment needed for Zosyn infiltrate. Provider Blanche Almanza notified, advised for cold compress. Cold compress applied and arm elevated.
[2024-11-28] MEDS: vancomycin HCL 1,000 MG in 0.9 % Sodium Chloride 250 ML 270 MG IV ×2 (00:12→12:46)
[2024-11-28] MEDS: Piperacillin Sodium/Tazobactam 4.5 GM in 0.9 % Sodium Chloride 100 ML IV ×4 (02:40→22:12)
[2024-11-28 03:03] VITALS: BP 121/88; PULSE 99; RESP 16; TEMP 37; O2SAT 96
[2024-11-28] MEDS: LORazepam 0.5 MG TABLET PO (03:11)
--- NOTE | 2024-11-28 03:37 | PC.NURSE ---
pt reported having some increased anxiety this morning, Dr. Quiroz made aware, meds given per MAR, Will continue to reassess.
[2024-11-28 06:37] LABS: Hematocrit 37.3 % (42.0-52.0); Hemoglobin 11.8 g/dl (14.0-18.0); Mean Corpuscular HGB Conc 31.6 g/dl (31.0-36.0); Mean Corpuscular Hemoglobin 27.1 pg (27.0-33.0); Mean Corpuscular Volume 85.6 fL (80.0-98.0); Mean Platelet Volume 11.7 fL (9.4-12.4); Platelet Count 222 X10*3/uL (160-400); Red Blood Count 4.36 X10*6/uL (4.60-5.80); White Blood Count 11.7 X10*3/uL (4.8-10.8)
[2024-11-28 06:51] LABS: Alanine Aminotransferase 9 U/L (0-40); Albumin Level 4.3 g/dL (3.5-5.0); Alkaline Phosphatase 59 U/L (39-117); Anion Gap 14 (12-20); Aspartate Amino Transferase 18 U/L (5-37); Bilirubin Total 0.5 mg/dL (0.0-1.0); Blood Urea Nitrogen 13 mg/dL (9-16); Calcium 9.3 mg/dL (8.4-10.2); Carbon Dioxide 29 mmol/L (22-29); Chloride 102 mmol/L (96-108); Creatinine Clr Calc Pharmacy 86.1; Estimated Glomerular Filt Rate > 60; Glucose Random 105 mg/dL (60-115); Potassium 3.9 mmol/L (3.3-5.1); Sodium 141 mmol/L (135-145); Total Protein 7.7 g/dL (6.5-8.0)
--- NOTE | 2024-11-28 07:29 | HE.PHANOTE ---
RE [facility] Patient methadone verification form received by pharmacy. Patient confirmed to be getting 80 mg with [facility]. Patient was given 27 take home bottles at well.
[2024-11-28 08:00] VITALS: BP 116/62; PULSE 76; RESP 16; TEMP 36.7; O2SAT 96
[2024-11-28] MEDS: methADONE HCl 20 MG/2 ML ORAL.CONC 80 MG PO (08:25)
[2024-11-28] MEDS: Lactated Ringers 1,000 ML 100 ML IVCONT (08:27)
--- NOTE | 2024-11-28 08:52 | P.PNGS_ITS ---
Subjective Subjective Date of Service: 11/28/24 Patient reports: no new complaints Interval history: Patient reports he is doing well. Denies pain. He has noticed that the wound continues to drain. He denies fever or chills. Tolerating diet Physical Exam 2 Vital Signs: Vital Signs: Last Vital Signs Temp 98.1 F 11/28/24 08:00 Pulse 76 11/28/24 08:00 Resp 16 11/28/24 08:00 BP 116/62 11/28/24 08:00 Pulse Ox 96 11/28/24 08:00 O2 Del Method Room Air 11/28/24 08:00 BMI result Body Mass Index 25.5 Const: General: comfortable Orientation/consciousness: patient oriented x3 Skin: Other: Left buttock wound: 3 x 3 cm wound with scant drainage. Surrounding erythema, improved from yesterday. No palpable fluid collection was unable to express significant discharge out at bedside Neuro: General: patient oriented x3 Objective Data Active Medications Acetaminophen (Acetaminophen 325 Mg Tablet) 650 mg PO Q6H PRN PRN Reason: Pain, Mild 1-3,fever,headache Calcium Carbonate (Calcium Carbonate 750 Mg Tab.Chew) 750 mg PO Q4H PRN PRN Reason: Heartburn Enoxaparin Sodium (Enoxaparin Sodium 40 Mg/0.4 Ml Syringe) 40 mg SUBCUT Q24H [facility] Last Admin: 11/27/24 11:59 Dose: 40 mg Documented By: BRYCE Piperacillin Sod/Tazobactam (Sod 4.5 gm/ Sodium Chloride) 100 mls @ 200 mls/hr IV Q6H [facility] Last Admin: 11/28/24 08:30 Dose: 200 mls/hr Documented By: SILAS Vancomycin HCl 1,000 mg/ (Sodium Chloride) 270 mls @ 270 mls/hr IV Q12H [facility] Last Infusion: 11/28/24 01:14 Dose: Infused Documented By: PAULA Ketorolac Tromethamine (Ketorolac Tromethamine 30 Mg/Ml Vial) 30 mg IVPUSH Q6H PRN PRN Reason: Pain, Severe (Pain Scale 7-10) Stop: 12/02/24 11:18 Magnesium Hydroxide (Milk Of Magnesia 30 Ml Oral.Susp) 30 ml PO DAILY PRN PRN Reason: Constipation Melatonin (Melatonin 3 Mg Tablet) 6 mg PO BEDTIME PRN PRN Reason: Insomnia Methadone HCl (Methadone Hcl 20 Mg/2 Ml Oral.Conc) 80 mg PO DAILY [facility] Last Admin: 11/28/24 08:25 Dose: 80 mg Documented By: SILAS Co-signed By: CHAVEZ Pharmacy Consult (Consult Rx Vancomycin Dosing) 1 each MISCELLANE DAILY PRN PRN Reason: Consult order Sodium Chloride (0.9 % Sodium Chloride Flush 3 Ml Syringe) 3 ml IVFLUSH QSHIFT [facility] Last Admin: 11/28/24 08:33 Dose: Not Given Documented By: SILAS Non-Admin Reason: IV Running Labs 11/28/24 05:52 11/28/24 05:52 Labs: Laboratory Results - last 24 hr 11/27/24 11/28/24 08:49 05:52 MCV 84.2 85.6 MCH 27.2 27.1 MCHC 32.3 31.6 RDW 12.3 12.0 Plt Count 228 222 MPV 11.5 11.7 Immature Gran % (Auto) 0.4 Neut % (Auto) 81.3 H Lymph % (Auto) 9.2 L [place] % (Auto) 8.8 Eos % (Auto) 0.1 Baso % (Auto) 0.2 Lymph # (Auto) 1.6 [place] # (Auto) 1.5 H Eos # (Auto) 0.0 Baso # (Auto) 0.0 Abs Immat Gran (auto) 0.07 H Absolute Neuts (auto) 14.2 H Absolute Nucleated RBC 0.000 0.000 Nucleated RBC % (auto) 0.0 0.0 Smear Tech's Comments VERIFIED ESR 58 H Anion Gap 12 14 Estim Creat Clear Calc 84.4 86.1 Estimated GFR > 60 > 60 Random Glucose 108 105 Lactic Acid 1.6 Calcium 9.7 9.3 Magnesium 1.9 Total Bilirubin 0.5 0.5 AST 20 18 ALT 15 9 Alkaline Phosphatase 64 59 C-Reactive Protein 16.94 H Total Protein 8.4 H 7.7 Albumin 4.7 4.3 Procedures Date of Service Date of Service: 11/28/24 Progress Note: A&P Assessment and plan (1) Cellulitis: Status: Acute Plan 49-year-old male admitted for management of cellulitis of the left buttock. Patient is not experiencing any pain. The wound continues to drain small amounts of purulent discharge. On exam the area of erythema appears to have improved slightly since yesterday. It is core oven tender to the touch. Was unable to appreciate any true fluid collection, and it was unable to express significant amounts of discharge from the area. There are no areas of necrosis. No indication for incision and drainage at this time, no current plans for surgical intervention. Would recommend continuing IV antibiotics. The area may need debridement in the future Time Spent With Patient Time: Total time managing care of this patient today ____ minutes. Quality Stroke Does the patient have a stroke diagnosis?: No VTE Prior VTE?: No VTE Risk Level:: Medical - moderate - high VTE Device Contraindication: N/A - Device Ordered VTE Drug Contraindication: N/A - Med Ordered
--- NOTE | 2024-11-28 13:25 | MHC.CM.PN ---
pt lives in a custodial with his fiancee he gets methadone from [facility] [place] plan retunr to custodial
[2024-11-28] MEDS: diphenhydrAMINE HCL 50 MG/ML VIAL 25 MG IVPUSH (14:00)
--- NOTE | 2024-11-28 15:13 | HO.PM.IMPN ---
Subjective Subjective Date of Service: 11/28/24 Interval History: seen and evaluated this morning denies fever or chills pain improving still having erythema and tenderness Review of Systems Negative except HPI/interval history. Review of Systems: Yes all other systems are reviewed and are negative Physical Exam Vital Signs: Vital Signs: Last Vital Signs Temp 98.1 F 11/28/24 08:00 Pulse 76 11/28/24 08:00 Resp 16 11/28/24 08:00 BP 116/62 11/28/24 08:00 Pulse Ox 96 11/28/24 08:00 O2 Del Method Room Air 11/28/24 08:00 BMI result Body Mass Index 25.5 Const: Other: Constitutional - Awake and Alert, No apparent distress Cardiovascular - S1S2, RRR, No edema Respiratory - Normal lung expansion, Normal respiratory effort, No respiratory distress, CTA bilaterally Gastrointestinal - NT / ND; +BS; No rebound or guarding Extremities - no calf tenderness bilaterally, no swelling Skin - L perianal/gluteal fold extensive erythema with about a 4-5 CM area of induration with open pustular drainage, drainage Neurological - Alert & oriented x3, No focal deficit Psychological - Appropriate affect Objective Data Active Medications Acetaminophen (Acetaminophen 325 Mg Tablet) 650 mg PO Q6H PRN PRN Reason: Pain, Mild 1-3,fever,headache Calcium Carbonate (Calcium Carbonate 750 Mg Tab.Chew) 750 mg PO Q4H PRN PRN Reason: Heartburn Enoxaparin Sodium (Enoxaparin Sodium 40 Mg/0.4 Ml Syringe) 40 mg SUBCUT Q24H [facility] Last Admin: 11/28/24 12:49 Dose: Not Given Documented By: SILAS Non-Admin Reason: Patient Refused Piperacillin Sod/Tazobactam (Sod 4.5 gm/ Sodium Chloride) 100 mls @ 200 mls/hr IV Q6H [facility] Last Infusion: 11/28/24 09:24 Dose: Infused Documented By: ISLAS Vancomycin HCl 1,000 mg/ (Sodium Chloride) 270 mls @ 270 mls/hr IV Q12H [facility] Last Infusion: 11/28/24 14:01 Dose: Infused Documented By: SILAS Ketorolac Tromethamine (Ketorolac Tromethamine 30 Mg/Ml Vial) 30 mg IVPUSH Q6H PRN PRN Reason: Pain, Severe (Pain Scale 7-10) Stop: 12/02/24 11:18 Magnesium Hydroxide (Milk Of Magnesia 30 Ml Oral.Susp) 30 ml PO DAILY PRN PRN Reason: Constipation Melatonin (Melatonin 3 Mg Tablet) 6 mg PO BEDTIME PRN PRN Reason: Insomnia Methadone HCl (Methadone Hcl 20 Mg/2 Ml Oral.Conc) 80 mg PO DAILY [facility] Last Admin: 11/28/24 08:25 Dose: 80 mg Documented By: SILAS Co-signed By: CHAVEZ Ondansetron HCl (Ondansetron Hcl 4 Mg/2 Ml Vial) 4 mg IVPUSH Q8H PRN PRN Reason: Nausea and Vomiting Pharmacy Consult (Consult Rx Vancomycin Dosing) 1 each MISCELLANE DAILY PRN PRN Reason: Consult order Sodium Chloride (0.9 % Sodium Chloride Flush 3 Ml Syringe) 3 ml IVFLUSH QSHIFT [facility] Last Admin: 11/28/24 08:33 Dose: Not Given Documented By: SILAS Non-Admin Reason: IV Running Labs 11/28/24 05:52 11/28/24 05:52 Labs: Laboratory Results - last 24 hr 11/28/24 05:52 MCV 85.6 MCH 27.1 MCHC 31.6 RDW 12.0 Plt Count 222 MPV 11.7 Absolute Nucleated RBC 0.000 Nucleated RBC % (auto) 0.0 Anion Gap 14 Estim Creat Clear Calc 86.1 Estimated GFR > 60 Random Glucose 105 Calcium 9.3 Total Bilirubin 0.5 AST 18 ALT 9 Alkaline Phosphatase 59 Total Protein 7.7 Albumin 4.3 Microbiology Microbiology Results: Microbiology 11/27/24 08:59 Blood Culture - Preliminary Blood - Venous No growth after 24 hours. 11/27/24 08:49 Blood Culture - Preliminary Blood - Venous No growth after 24 hours. Assessment and Plan (1) Cellulitis: Status: Acute (2) Sepsis: Status: Acute Plan 49 yo M with a prior history of IVDU, currently on methadone therapy (sobriety > 3 years) who presents with progressive worsening of L gluteal infeciton He is found to be septic with extensive cellulitis +/- early abscess Sepsis due to L gluteal cellulitis Hx IVDU, but denied use > 3 years continue vancomcyin/zosyn IVF DC Pending cultures surgical input, might need debridement but no need at this point, to follow follow up cultures Vancomycin trough Chronic opiate dependence methadone daily Full Code DVT pptx - Lovenox Pt with sepsis secondary to L gluteal cellulitis with possible early abscess, requiring broad spectrum IV antibotics and surgical evaluation. Therefore his hospitalization is expected to require overnight hence he will be admitted as inpatient. Quality Stroke Does the patient have a stroke diagnosis?: No VTE Prior VTE?: No VTE Risk Level:: Medical - moderate - high VTE Device Contraindication: N/A - Device Ordered VTE Drug Contraindication: N/A - Med Ordered
[2024-11-28 15:20] VITALS: BP 118/67; PULSE 73; RESP 16; TEMP 36.7; O2SAT 96
--- NOTE | 2024-11-28 16:20 | HO.WOUND ---
Wound Consult: Initial 49yr old?male admitted to [facility] on 11/27/24 - See progress notes and H&P for detailed history.? Wound consult placed for Left buttock abscess.? Patient agreeable to assessment and photo documentation.? Chart review reveals patient is followed by General surgery but no topical recommendations ordered. Per Surgery Ok to make topical recommendations. Patient and fiance educated on ways to care for wound at time of d/c. given they are homeless at this time we discussed their living situation is currently in a private room at a motel where they have access to a shower for daily care. Patients significant other was taught how to care for wound should patient be agreeable to packing. Patient was educated about local resources [facility] and their [employer] wound van. Both the patient and significant other report understanding and teach back was provided. All questions were answered prior to ending consultation. Left buttock Etiology: Abscess / cellulitis ?? Measurements: 2cm x 2cm x 2.2cm Wound Bed: appears as a carbuncle with clusters of yellow slough Drainage / Odor: no active oozing noted - grant yellow drainage noted on dry abd pad Edges: ? unattached Gabriela wound: ? red pink skin - improving compared to photo in chart there remains slight Induration and Warmth noted Pain: pain reported Goals of Treatment: ? Light packing to keep open and draining followed by dry gauze and frequent cleansing Recommendations: Left Buttock - Cleanse and irrigate with NS, pat dry. Apply skin prep to periwound. Lightly pack with strip packing be sure to leave a wick for full removal. Cover with dry gauze and ABD pad. Wash daily in shower with antimicrobial soap and dry well. If patient is not able to tolerate packing be sure to keep covered with dry dressing such as gauze, and or Abd pad and wash one to two times daily. May consider Sits bath three times a day. Re-consult wound care Nurse for wound deterioration or wound changes.
[2024-11-28 17:31] LABS: Vancomycin Random 20.3 mcg/mL (15-20)
--- NOTE | 2024-11-28 17:44 | HE.PHANOTE ---
RE: VANCO DOSING Trough came back as 20.3 mg/L (after 3 doses of 1000 mg). Dose is decreased to 750 mg q12h and pushed back 4 hours. Next trough is scheduled for 11/29/24 @2100.
[2024-11-28 19:51] VITALS: BP 121/78; PULSE 80; RESP 18; TEMP 36.4; O2SAT 96
[2024-11-28] MEDS: vancomycin HCL 750 MG in 0.9 % Sodium Chloride 250 ML 265 MG IV (22:53)
[2024-11-29 03:42] VITALS: BP 124/66; PULSE 84; RESP 18; TEMP 36.3; O2SAT 94
[2024-11-29] MEDS: Piperacillin Sodium/Tazobactam 4.5 GM in 0.9 % Sodium Chloride 100 ML IV ×4 (03:49→20:17)
[2024-11-29 06:28] LABS: Creatinine Clr Calc Pharmacy 78.2; Estimated Glomerular Filt Rate > 60
[2024-11-29 07:32] VITALS: BP 128/81; PULSE 71; RESP 16; TEMP 36.6; O2SAT 98
[2024-11-29] MEDS: methADONE HCl 20 MG/2 ML ORAL.CONC 80 MG PO (07:43)
[2024-11-29] MEDS: 0.9 % Sodium Chloride Flush 3 ML SYRINGE IVFLUSH ×2 (07:46→15:05)
--- NOTE | 2024-11-29 07:47 | HO.PM.IMPN ---
Subjective Subjective Date of Service: 11/29/24 Interval History: Seen in follow up for gluteal abscess Interval history: Denies pain. Draining continues on buttock. Continues on abx. Concerned about outpt services Review of Systems Review of Systems: Yes all other systems are reviewed and are negative Physical Exam Vital Signs: Vital Signs: Last Vital Signs Temp 97.9 F 11/29/24 07:32 Pulse 71 11/29/24 07:32 Resp 16 11/29/24 07:32 BP 128/81 11/29/24 07:32 Pulse Ox 98 11/29/24 07:32 O2 Del Method Room Air 11/29/24 07:32 BMI result Body Mass Index 25.5 Constitutional - Awake and Alert, No apparent distress Eyes - PERRLA, EOMI Cardiovascular - S1S2, RRR, No edema Respiratory - Normal lung expansion, Normal respiratory effort, No respiratory distress, CTA bilaterally Extremities - no calf tenderness bilaterally, no swelling Skin - L perianal/gluteal fold extensive erythema with about a 4-5 CM area of induration with open pustular drainage, drainage Neurological - Alert & oriented x3 Psychological - somewhat anxious Objective Data Active Medications Acetaminophen (Acetaminophen 325 Mg Tablet) 650 mg PO Q6H PRN PRN Reason: Pain, Mild 1-3,fever,headache Calcium Carbonate (Calcium Carbonate 750 Mg Tab.Chew) 750 mg PO Q4H PRN PRN Reason: Heartburn Enoxaparin Sodium (Enoxaparin Sodium 40 Mg/0.4 Ml Syringe) 40 mg SUBCUT Q24H [facility] Last Admin: 11/28/24 12:49 Dose: Not Given Documented By: SILAS Non-Admin Reason: Patient Refused Piperacillin Sod/Tazobactam (Sod 4.5 gm/ Sodium Chloride) 100 mls @ 200 mls/hr IV Q6H [facility] Last Infusion: 11/29/24 04:25 Dose: Infused Documented By: IRENE Vancomycin HCl 750 mg/ Sodium (Chloride) 265 mls @ 265 mls/hr IV Q12H [facility] Last Infusion: 11/29/24 00:41 Dose: Infused Documented By: IRENE Ketorolac Tromethamine (Ketorolac Tromethamine 30 Mg/Ml Vial) 30 mg IVPUSH Q6H PRN PRN Reason: Pain, Severe (Pain Scale 7-10) Stop: 12/02/24 11:18 Magnesium Hydroxide (Milk Of Magnesia 30 Ml Oral.Susp) 30 ml PO DAILY PRN PRN Reason: Constipation Melatonin (Melatonin 3 Mg Tablet) 6 mg PO BEDTIME PRN PRN Reason: Insomnia Methadone HCl (Methadone Hcl 20 Mg/2 Ml Oral.Conc) 80 mg PO DAILY [facility] Last Admin: 11/28/24 08:25 Dose: 80 mg Documented By: SILAS Co-signed By: CHAVEZ Ondansetron HCl (Ondansetron Hcl 4 Mg/2 Ml Vial) 4 mg IVPUSH Q8H PRN PRN Reason: Nausea and Vomiting Pharmacy Consult (Consult Rx Vancomycin Dosing) 1 each MISCELLANE DAILY PRN PRN Reason: Consult order Sodium Chloride (0.9 % Sodium Chloride Flush 3 Ml Syringe) 3 ml IVFLUSH QSHIFT [facility] Last Admin: 11/29/24 00:40 Dose: Not Given Documented By: IRENE Non-Admin Reason: IV Running Labs 11/28/24 05:52 11/29/24 05:48 Labs: Laboratory Results - last 24 hr 11/28/24 11/29/24 17:02 05:48 Hold Purple Top SEE NOTE Estim Creat Clear Calc 78.2 Estimated GFR > 60 Random Vancomycin 20.3 H Microbiology Microbiology Results: Microbiology 11/27/24 08:49 Blood Culture - Preliminary Blood - Venous Prelim: GPR Gram Stain only 11/27/24 08:59 Blood Culture - Preliminary Blood - Venous No growth after 24 hours. Assessment and Plan (1) Cellulitis: Status: Acute (2) Sepsis: Status: Acute Plan 49 yo M with a prior history of IVDU, currently on methadone therapy (sobriety > 3 years) who presents with progressive worsening of L gluteal infeciton He is found to be septic with extensive cellulitis +/- early abscess Sepsis due to L gluteal cellulitis Hx IVDU, but denied use > 3 years continue vancomcyin/zosyn IVF DC Pending cultures surgical input, might need debridement but no need at this point, to follow follow up cultures Vancomycin trough Chronic opiate dependence methadone daily Mood disorder/PTSD given resources on outpt clinicians Full Code DVT pptx - Lovenox Pt with sepsis secondary to L gluteal cellulitis with possible early abscess, requiring broad spectrum IV antibotics still with induration and copious draingae. Quality Stroke Does the patient have a stroke diagnosis?: No VTE Prior VTE?: No VTE Risk Level:: Medical - moderate - high VTE Device Contraindication: N/A - Device Ordered VTE Drug Contraindication: N/A - Med Ordered
[2024-11-29] MEDS: vancomycin HCL 750 MG in 0.9 % Sodium Chloride 250 ML 265 MG IV ×2 (11:53→22:21)
[2024-11-29 15:41] VITALS: BP 137/72; PULSE 65; RESP 16; TEMP 36.7; O2SAT 96
[2024-11-29 20:00] VITALS: BP 117/60; PULSE 61; RESP 17; TEMP 36.5; O2SAT 97
[2024-11-29 21:47] LABS: Vancomycin Random 14.3 mcg/mL (15-20)
[2024-11-30 03:52] VITALS: BP 122/82; PULSE 62; RESP 18; TEMP 36.7; O2SAT 96
[2024-11-30] MEDS: Piperacillin Sodium/Tazobactam 4.5 GM in 0.9 % Sodium Chloride 100 ML IV ×2 (03:55→08:07)
[2024-11-30 06:38] LABS: Estimated Glomerular Filt Rate > 60
--- NOTE | 2024-11-30 07:13 | P.PNIM_ITS ---
Subjective Subjective Date of Service: 11/30/24 Physical Exam 2 Vital Signs: Vital Signs: Last Vital Signs Temp 98.0 F 11/30/24 03:52 Pulse 62 11/30/24 03:52 Resp 18 11/30/24 03:52 BP 122/82 11/30/24 03:52 Pulse Ox 96 11/30/24 03:52 O2 Del Method Room Air 11/30/24 03:52 BMI result Body Mass Index 25.5 Objective Data Active Medications Acetaminophen (Acetaminophen 325 Mg Tablet) 650 mg PO Q6H PRN PRN Reason: Pain, Mild 1-3,fever,headache Calcium Carbonate (Calcium Carbonate 750 Mg Tab.Chew) 750 mg PO Q4H PRN PRN Reason: Heartburn Enoxaparin Sodium (Enoxaparin Sodium 40 Mg/0.4 Ml Syringe) 40 mg SUBCUT Q24H [facility] Last Admin: 11/29/24 10:33 Dose: Not Given Documented By: SILAS Non-Admin Reason: Patient Refused Piperacillin Sod/Tazobactam (Sod 4.5 gm/ Sodium Chloride) 100 mls @ 200 mls/hr IV Q6H [facility] Last Infusion: 11/30/24 05:10 Dose: Infused Documented By: IRENE Vancomycin HCl 750 mg/ Sodium (Chloride) 265 mls @ 265 mls/hr IV Q12H [facility] Last Infusion: 11/30/24 00:18 Dose: Infused Documented By: IRENE Ketorolac Tromethamine (Ketorolac Tromethamine 30 Mg/Ml Vial) 30 mg IVPUSH Q6H PRN PRN Reason: Pain, Severe (Pain Scale 7-10) Stop: 12/02/24 11:18 Magnesium Hydroxide (Milk Of Magnesia 30 Ml Oral.Susp) 30 ml PO DAILY PRN PRN Reason: Constipation Melatonin (Melatonin 3 Mg Tablet) 6 mg PO BEDTIME PRN PRN Reason: Insomnia Methadone HCl (Methadone Hcl 20 Mg/2 Ml Oral.Conc) 80 mg PO DAILY [facility] Last Admin: 11/29/24 07:43 Dose: 80 mg Documented By: SILAS Co-signed By: SWAPNIL Ondansetron HCl (Ondansetron Hcl 4 Mg/2 Ml Vial) 4 mg IVPUSH Q8H PRN PRN Reason: Nausea and Vomiting Pharmacy Consult (Consult Rx Vancomycin Dosing) 1 each MISCELLANE DAILY PRN PRN Reason: Consult order Sodium Chloride (0.9 % Sodium Chloride Flush 3 Ml Syringe) 3 ml IVFLUSH QSHIFT [facility] Last Admin: 11/30/24 00:08 Dose: Not Given Documented By: IRENE Non-Admin Reason: iv abx running Labs 11/28/24 05:52 11/30/24 06:04 Labs: Laboratory Results - last 24 hr 11/29/24 11/30/24 21:18 06:04 Estim Creat Clear Calc 76.0 Estimated GFR > 60 Random Vancomycin 14.3 L Microbiology Microbiology Results: Microbiology 11/27/24 08:59 Blood Culture - Preliminary Blood - Venous No growth after 48 hours. 11/27/24 08:49 Blood Culture - Final Blood - Venous Corynebacterium species Quality Stroke Does the patient have a stroke diagnosis?: No VTE Prior VTE?: No VTE Risk Level:: Medical - moderate - high VTE Device Contraindication: N/A - Device Ordered VTE Drug Contraindication: N/A - Med Ordered
[2024-11-30 07:33] VITALS: BP 135/82; PULSE 71; RESP 18; TEMP 36.3; O2SAT 97
[2024-11-30] MEDS: methADONE HCl 20 MG/2 ML ORAL.CONC 80 MG PO (08:00)
[2024-11-30] MEDS: 0.9 % Sodium Chloride Flush 3 ML SYRINGE IVFLUSH (08:02)
--- NOTE | 2024-11-30 09:46 | P.PNGS_ITS ---
Subjective Subjective Date of Service: 11/30/24 Interval history: Feels well Some pain on the left buttock wound No fever Physical Exam 2 Vital Signs: Vital Signs: Last Vital Signs Temp 97.4 F 11/30/24 07:33 Pulse 71 11/30/24 07:33 Resp 18 11/30/24 07:33 BP 135/82 11/30/24 07:33 Pulse Ox 97 11/30/24 07:33 O2 Del Method Room Air 11/30/24 07:33 BMI result Body Mass Index 25.5 Const: General: comfortable and no acute distress Resp: Effort & Inspection: normal respiratory effort Cardio: Rate: regular rate GI: Palpation (GI): Soft to palpation and nontender Back/Spine/Pelvis: Other: Left buttock open wound he had minimal residual induration, no discharge, no necrotic areas, scanty drainage Objective Data Active Medications Acetaminophen (Acetaminophen 325 Mg Tablet) 650 mg PO Q6H PRN PRN Reason: Pain, Mild 1-3,fever,headache Calcium Carbonate (Calcium Carbonate 750 Mg Tab.Chew) 750 mg PO Q4H PRN PRN Reason: Heartburn Enoxaparin Sodium (Enoxaparin Sodium 40 Mg/0.4 Ml Syringe) 40 mg SUBCUT Q24H [facility] Last Admin: 11/29/24 10:33 Dose: Not Given Documented By: SILAS Non-Admin Reason: Patient Refused Piperacillin Sod/Tazobactam (Sod 4.5 gm/ Sodium Chloride) 100 mls @ 200 mls/hr IV Q6H [facility] Last Infusion: 11/30/24 08:38 Dose: Infused Documented By: SILAS Vancomycin HCl 750 mg/ Sodium (Chloride) 265 mls @ 265 mls/hr IV Q12H [facility] Last Infusion: 11/30/24 00:18 Dose: Infused Documented By: IRENE Ketorolac Tromethamine (Ketorolac Tromethamine 30 Mg/Ml Vial) 30 mg IVPUSH Q6H PRN PRN Reason: Pain, Severe (Pain Scale 7-10) Stop: 12/02/24 11:18 Magnesium Hydroxide (Milk Of Magnesia 30 Ml Oral.Susp) 30 ml PO DAILY PRN PRN Reason: Constipation Melatonin (Melatonin 3 Mg Tablet) 6 mg PO BEDTIME PRN PRN Reason: Insomnia Methadone HCl (Methadone Hcl 20 Mg/2 Ml Oral.Conc) 80 mg PO DAILY [facility] Last Admin: 11/30/24 08:00 Dose: 80 mg Documented By: SILAS Co-signed By: SWAPNIL Ondansetron HCl (Ondansetron Hcl 4 Mg/2 Ml Vial) 4 mg IVPUSH Q8H PRN PRN Reason: Nausea and Vomiting Pharmacy Consult (Consult Rx Vancomycin Dosing) 1 each MISCELLANE DAILY PRN PRN Reason: Consult order Sodium Chloride (0.9 % Sodium Chloride Flush 3 Ml Syringe) 3 ml IVFLUSH QSHIFT [facility] Last Admin: 11/30/24 08:02 Dose: 3 ml Documented By: SILAS Labs 11/28/24 05:52 11/30/24 06:04 Labs: Laboratory Results - last 24 hr 11/29/24 11/30/24 21:18 06:04 Estim Creat Clear Calc 76.0 Estimated GFR > 60 Random Vancomycin 14.3 L Microbiology Microbiology Results: Microbiology 11/27/24 08:59 Blood Culture - Preliminary Blood - Venous No growth after 48 hours. 11/27/24 08:49 Blood Culture - Final Blood - Venous Corynebacterium species Procedures Date of Service Date of Service: 11/30/24 Progress Note: A&P Assessment and plan (1) Cellulitis: Status: Acute Assessment and Plan: Minimal residual induration on the wound on the left buttock Okay to DC home with oral antibiotics He would see the patient to apply warm compresses, massage the area No surgical intervention urgent at this time Time Spent With Patient Time: Total time managing care of this patient today ____ minutes. Quality Stroke Does the patient have a stroke diagnosis?: No VTE Prior VTE?: No VTE Risk Level:: Medical - moderate - high VTE Device Contraindication: N/A - Device Ordered VTE Drug Contraindication: N/A - Med Ordered
--- NOTE | 2024-11-30 10:59 | PM.DS ---
DS: Providers Provider Date of Service: 11/30/24 Date of admission: 11/27/24 10:56 Date of discharge: 11/30/24 Primary care physician: None Physician Attending physician on admission: Isaias Pierre Consults: 11/27/24 11:19 Consult to General Surgery Routine Consulting Provider: [facility] Reason for consultation: L gluteal cellulitis with ? early abscess 11/27/24 14:48 Consult to Wound Care Routine Reason for consultation: wound on left buttock [facility]ing clinician: Demetria Pineda DS: Diagnosis Discharge Diagnosis (1) Cellulitis: Status: Acute DS: Summary Hospital Course Hospital Course: HPI on admission 11/[address] Pierre: Chief Complaint: L glueal pain The patient is a 49-year-old male with a past medical history of chronic opiate dependence on methadone maintenance therapy with more than 3 years of sobriety who presents to the emergency room with a several day history of worsening erythema, drainage and pain of the left gluteus. The patient endorses that his symptoms began with ?pimple? which progressed over the last 4 days with extending erythema as well as size. Reports that several days prior it began draining. He reported chills with subjective fevers at home. He reports his last opiate misuse was more than 3 years ago. In the emergency room the patient was found to have elevated inflammatory markers along with leukocytosis of 17,000. He presented initially with tachycardia in the 110s. His lactate is normal. CT of the pelvis with IV contrast revealed skin thickening with subcutaneous fat infiltration involving the left inferior gluteal crease without evidence of fistula or sinus tract. There was no drainable fluid collection evident by CT. Left inguinal lymphadenopathy was presumably reactive. The patient was given IV antibiotics, IV toradol, tylenol and now will be admitted for further care. Hospital course: Patient admitted to [facility] for management of cellulitis and abscess of the left gluteus. He was evaluated by General surgery, no intervention indicated given abscess was spontaneously draining. He was treated with IV vancomycin and Zosyn with good improvement in symptoms. He was evaluated by the wound RN recommending packing if patient was tolerating this as well as gentle cleansing and covering with abd pad. Meeting sepsis criteria on admission but no severe sepsis. Upon re-evaluation on morning of discharge, general surgery again stated no intervention needed. Recommended discharged on oral antibiotics. Will discharge patient on Bactrim DS 1 tab twice daily times 10 days. He is counseled on dosing and side effects. Recommend wound care with cleansing using antibacterial soap with drying well and covering with either dry gauze or ABD pad. Monitor for worsening infection. Advised to establish care with PCP. Smoking cessation advised. He was continued on methadone and will continue following monthly at clinic. Last dose letter provided. Status at Discharge Functional status at discharge: independent ambulation Overall status at discharge: patient is progressing back to baseline Time Attestation Discharge Coordination Time (in mins): 35 Quality: Safe Use of Opioids Does Pt have an Active Cancer Diagnosis on the Problem List?: No Quality: Stroke Does the patient have a stroke diagnosis?: No Physical Exam Vital Signs: Vital Signs: Last Vital Signs Temp 97.4 F 11/30/24 07:33 Pulse 71 11/30/24 07:33 Resp 18 11/30/24 07:33 BP 135/82 11/30/24 07:33 Pulse Ox 97 11/30/24 07:33 O2 Del Method Room Air 11/30/24 07:33 BMI result Body Mass Index 25.5 DS: Data Data Completed and Pending Labs on day of discharge: Laboratory Results - last 24 hr 11/29/24 11/30/24 21:18 06:04 Creatinine 1.11 Estim Creat Clear Calc 76.0 Estimated GFR > 60 Random Vancomycin 14.3 L Preliminary micro results at discharge 11/27/24 08:59 Blood Culture - Preliminary Blood - Venous No growth after 48 hours. Discharge Plan Discharge Anticipated Discharge Date/Time: 11/30/24 10:41 Patient Disposition: Home, Self-Care Discharge Diagnosis: Cellulitis and abscess buttock Referrals: Physician,None [Primary Care Provider, Medical] - 1 Week Discharge Medications: New sulfamethoxazole-trimethoprim 800-160 mg tablet 1 tab PO BID Qty: 20 0RF Continued ozewgfuax-UPD-KW-acetaminophen 6.01-83-88-500 mg/15 mL Liquid 30 ml PO Q4-6H PRN (Reason: Cough/pain) Rx Instructions: DNExceed 4 doses/24h methadone [Methadone Intensol] 10 mg/mL Concentrate 80 mg PO DAILY Discharge Orders: Discharge Order (Routine); Ordered 11/30/24 Ordered By: Demetria Pineda Diet: Advance to usual diet Activity on Discharge: As tolerated Stand Alone Forms: Patient Portal Discharge page Print Language: Cook Islander Activity Restrictions/Additional Instructions: Topical Wound Care Recommendations: Left Buttock - Cleanse and irrigate with NS, pat dry. Cover with dry gauze and ABD pad. Wash daily in shower with antimicrobial soap and dry well. If patient is not able to tolerate packing be sure to keep covered with dry dressing such as gauze, and or Abd pad and wash one to two times daily. May consider Sits bath three times a day. Care Plan Goals: Continue treatment of abscess of buttock Antibiotics and wound management Cover with abdominal pad and change daily until drainage ceases. Monitor for worsening infection including increased draiange, worsening redness/pain, fevers, foul odor Take antibiotics as prewscribed- bactrim 1 tab twice daily x 10 days Establish with new pcp and seek out counseling/psychiatry Continue methadone Health Concerns: Cellulitis and abscess left buttock Plan of Treatment: Antibiotics and wound care Assessment: See above. See dc summary
--- NOTE | 2024-11-30 12:21 | MHC.CM.PN ---
PT WILL DC BACK TO [facility] TODAY WITH NO NEW SERVICES
== END 2024-11-30 11:32 | disposition home or self-care (01) | DRG 720 ==
LOC: HO.ED 11:17 → HO.EDOVER 11:19 → HO.S3 11:53
PROVIDERS: Physician Assistant Medical; Admitting Provider Family Medicine; Emergency Provider Emergency Medicine; Visit Provider Physician Assistant
DX: A41.9 Sepsis, unspecified organism (principal); F11.20 Opioid dependence, uncomplicated; F17.210 Nicotine dependence, cigarettes, uncomplicated; F39 Unspecified mood [affective] disorder; F43.10 Post-traumatic stress disorder, unspecified; L03.317 Cellulitis of buttock; Z59.01 Sheltered homelessness; Z71.6 Tobacco abuse counseling; Z79.899 Other long term (current) drug therapy
CPT/HCPCS: 36415; 72193; 80053; 80202; 82565; 83605; 83735; 85025; 85027; 85652; 86140; 87040; 87205; 99285; J0131; J1200; J1650; J1885; J2543; J3370; J7120; Q9967

== ENCOUNTER → 2024-11-27 08:22 | Outpatient (BNV) | payer OTHER, SELFPAY | PROVIDERS: Emergency Provider Emergency Medicine; Visit Provider Radiology Diagnostic Radiology | DX: L98.6 Other infiltrative disorders of the skin and subcutaneous tissue (principal) | CPT/HCPCS: 72193 ==

== ENCOUNTER → 2024-11-27 10:56 | Outpatient (BNV) | payer OTHER, SELFPAY | PROVIDERS: Admitting Provider Family Medicine; Emergency Provider Emergency Medicine; Visit Provider Family Medicine | DX: L03.317 Cellulitis of buttock (principal); A41.9 Sepsis, unspecified organism | CPT/HCPCS: 99223; 99232; 99239 ==

== ENCOUNTER → 2024-11-27 10:56 | Outpatient (BNV) | payer OTHER, SELFPAY | PROVIDERS: Admitting Provider Family Medicine; Emergency Provider Emergency Medicine | DX: L03.317 Cellulitis of buttock (principal) | CPT/HCPCS: 99231 ==

== ENCOUNTER 2024-12-05 08:21 | Emergency (ER) | payer MEDICAID, SELFPAY ==
--- NOTE | ~2024-12-05 | XR_ITS ---
EXAMINATION: XR CHEST 2 VIEWS HISTORY: sob COMPARISON: There are no prior studies available for comparison. FINDINGS: PA and lateral views of the chest are submitted. The lungs are expanded and clear. There is no pleural effusion, pneumothorax, or pulmonary vascular congestion. The heart is normal in size. The bones are intact. XR/XR chest 2V IMPRESSION: Clear lungs. Electronically signed by: Jamar James MD 12/05/2024 09:08 AM EDT
[2024-12-05 08:28] VITALS: BP 127/89; PULSE 94; RESP 16; TEMP 36.4; O2SAT 98; BMI 25.8
--- NOTE | 2024-12-05 08:31 | ECG_ITS ---
Test Reason : SOB Blood Pressure : */* mmHG Vent. Rate : 85 BPM Atrial Rate : 85 BPM P-R Int : 132 ms QRS Dur : 72 ms QT Int : 394 ms P-R-T Axes : 79 61 63 degrees QTcB Int : 468 ms Normal sinus rhythm Normal ECG No previous ECGs available Referred By: Generic ED Physician Electronically Signed By: RYAN AGUILAR
[2024-12-05 08:58] LABS: MANUAL DIFF FLAG NO
[2024-12-05 09:00] LABS: Basophils Absolute Auto 0.1 X10*3/uL (0.0-0.2); Basophils Percent Auto 0.6 % (0-2); Eosinophils Absolute Auto 0.2 X10*3/uL (0.0-0.4); Eosinophils Percent Auto 2.1 % (0-4); Hematocrit 40.3 % (42.0-52.0); Hemoglobin 13.4 g/dl (14.0-18.0); Imm Gran Abs Auto 0.07 X10*3/uL (0.00-0.03); Imm Gran Pct Auto 0.7 % (0.0-0.4); Lymphocytes Absolute Auto 2.2 X10*3/uL (1.2-4.9); Lymphocytes Percent Auto 23.1 % (20-40); Mean Corpuscular HGB Conc 33.3 g/dl (31.0-36.0); Mean Corpuscular Hemoglobin 27.2 pg (27.0-33.0); Mean Corpuscular Volume 81.7 fL (80.0-98.0); Mean Platelet Volume 11.2 fL (9.4-12.4); Monocytes Absolute Auto 0.6 X10*3/uL (0.1-1.2); Monocytes Percent Auto 6.7 % (2-11); Neutrophils Absolute Auto 6.2 x10*3/uL (2.0-8.3); Neutrophils Percent Auto 66.8 % (45-73); Platelet Count 301 X10*3/uL (160-400); Red Blood Count 4.93 X10*6/uL (4.60-5.80); Red Cell Distribution Width 12.3 % (11.0-16.0); White Blood Count 9.4 X10*3/uL (4.8-10.8)
--- NOTE | 2024-12-05 09:10 | ED.GENADULT ---
HPI - General Adult General Chief complaint: Dyspnea Stated complaint: SOB, infection on back, med reaction? Time Seen by Provider: 12/05/24 09:10 History of Present Illness ED Provider: Bon PEACOCK narrative: The patient was recently hospitalized for an infection on his left buttock. He had had a CT scan that showed subcutaneous fat infiltration involving the left gluteal crease without evidence of fistulous or sinus tract. There was no drainable fluid collection by CT. The patient had presented to the hospital last week on November 24. They received IV antibiotics and they were discharged 5 days ago on November 30. The patient was discharged to complete antibiotics with 10 days of Bactrim DS 2 times a day. The patient says that 2 days ago he started to feel as if he was having exertional dyspnea. He had no chest pain. He did not have any pleuritic chest pain although he felt like he was having trouble taking a full breath. He stopped taking the antibiotic yesterday because he thought it might be a drug reaction. He says that he once had a similar reaction to doxycycline. He came to the emergency room today because he was still feeling the same sense of difficulty breathing despite having not taken the antibiotic yesterday. He thought that he ought to get checked. No abdominal pain. No nausea or vomiting. He feels that the infection on his left buttock is not getting worse after having stopped the antibiotic. No fever, sweats, chills. No cough or sputum. The patient is on methadone. He reports that he has no history of known lung disease. No history of asthma. He says he used to smoke cigarettes for awhile. More recently he vapes. He also smokes marijuana cigarettes. Related Data Home Medications ?Medication ?Instructions ?Recorded ?Confirmed [id number]-YHI-GU-acetaminophen 30 ml PO Q4-6H PRN Cough/pain 11/27/24 11/27/24 6.25 mg-30 [id number]/15mL oral liqd methadone 10 mg/mL oral 80 mg PO DAILY 11/27/24 11/28/24 concentrate (Methadone Intensol) Previous Rx's ?Medication ?Instructions ?Recorded sulfamethoxazole 800 1 tab PO BID #20 tabs 11/30/24 mg-trimethoprim 160 mg tablet budesonide-formoterol HFA 160 2 puff inhalation BID #10.2 grams 12/05/24 mcg-4.5 mcg/actuation aerosol inhaler Allergies Allergy/AdvReac Type Severity Reaction Status Date / Time cephalexin (From Keflex) Allergy Unknown Verified 12/05/24 08:31 doxycycline Allergy Unknown Verified 12/05/24 08:31 Review of Systems Review of Systems: Yes all other systems are reviewed and are negative [facility] Social History Social History Household Members: Spouse Housing: Homeless Housing Other:: [facility]) Alcohol intake: unknown Patient Tobacco Use Status: Current everyday Tobacco user Smoked in Last 30 Days: Yes e-Cigarette/Vaping Use: Currently Using Use of substances other than those prescribed or required for medical reasons: Yes Substance Use Type: Former Substance User and Marijuana Substance Use Type Other:: pt reports being sober Last Used Substance: Unknown Advance Directives: No Advance Directives Information Provided: No Do you have a plan to hurt others: No Plan service: No Physical Exam ED Vital Signs: Vital Signs - 24 hr 12/05/24 08:28 12/05/24 12:05 12/05/24 12:19 Temperature 97.5 F 97.5 F 97.5 F Pulse Rate 94 96 96 Respiratory Rate 16 16 16 Blood Pressure 127/89 122/78 122/78 Pulse Oximetry 98 99 99 Oxygen Delivery Method Room Air Room Air Room Air BMI result Body Mass Index 25.8 Const Other: The patient is awake, alert, pleasant, cooperative. He does not appear in acute distress. Orientation/consciousness: patient oriented x3 HENMT Other: The face is symmetrical. ?Mucous membranes moist. Eyes Other: Pupils are round equal, conjunctivae are clear, extraocular movements intact Neck Neck: Yes normal visual inspection, Yes full ROM and Yes no lymphadenopathy Resp Other: Breath sounds may be mildly diminished throughout but there are no adventitious sounds. Effort & Inspection: normal respiratory effort Auscultation: clear to auscultation bilaterally Cardio Rate: regular rate Rhythm: regular rhythm Heart sounds: S1 normal heart sound present and S2 normal heart sound present GI Other: Abdomen is flat, soft, and nontender. Skin Other: The patient has a dressing on the left buttock. There is no extensive erythema. Neuro General: patient oriented x3, gait normal, moves all extremities, no focal motor deficits and CN's II-XI intact bilaterally Extrem Other: There is no calf swelling or tenderness. No asymmetry. No peripheral edema. Medications Administered Discontinued Medications Generic Name Dose Route Start Last Admin Trade Name Jimy PRN Reason Stop Dose Admin Albuterol Sulfate 4 puff 12/05/24 11:28 12/05/24 11:36 Albuterol Sulfate 90 Mcg 8 Gm Inhaler INHALE 12/05/24 11:29 4 puff ONCE ONE Administration Medical Decision Making Medical Decision Making [facility] Narrative: The patient is a 49-year-old male who presents with approximately 48 hours of feeling short of breath. He was recently hospitalized for a left buttock cellulitis. He was discharged on Bactrim and he thought that perhaps his shortness of breath could be a reaction to Bactrim so he stopped taking the Bactrim over 24 hours ago. He has no skin manifestations of any drug reaction. He feels that his buttock infection is doing much better and that it has continued to improve despite stopping the Bactrim. The patient's vital signs are stable and he does not appear obviously unwell. On his physical exam he seems to have diminished breath sounds throughout although he has no jessie wheezing. He has a history of some smoking and also vaping. No history of asthma. The patient has a somewhat unusual looking EKG. This may be because he is on methadone. His QTC is not frankly prolonged. His troponin is negative. BNP is negative. D-dimer is undetectable. My suspicion is that the patient probably has some degree of bronchoconstriction, possibly he has some degree of undiagnosed asthma or early COPD. The patient was given a trial of albuterol as a bronchodilator. This seemed to help his sense of shortness of breath. He will therefore be discharged with a prescription for budesonide formoterol. He was instructed in the use of an AeroChamber. He was discharged with the an AeroChamber as well as the trial albuterol inhaler. He is hoping to get a new primary care doctor with [facility]. He is hoping to follow up with her. With regard to his buttock cellulitis I do not think he requires anymore antibiotics at this point. Lab Data 12/05/24 08:46 12/05/24 08:46 Labs: Lab Results 12/05/24 12/05/24 Range/Units 08:46 10:01 WBC 9.4 (4.8-10.8) X10*3/uL RBC 4.93 (4.60-5.80) X10*6/uL Hgb 13.4 L (14.0-18.0) g/dl Hct 40.3 L (42.0-52.0) % MCV 81.7 (80.0-98.0) fL MCH 27.2 (27.0-33.0) pg MCHC 33.3 (31.0-36.0) g/dl RDW 12.3 (11.0-16.0) % Plt Count 301 D (160-400) X10*3/uL MPV 11.2 (9.4-12.4) fL Immature Gran % (Auto) 0.7 H (0.0-0.4) % Neut % (Auto) 66.8 (45-73) % Lymph % (Auto) 23.1 (20-40) % Wallace % (Auto) 6.7 (2-11) % Eos % (Auto) 2.1 (0-4) % Baso % (Auto) 0.6 (0-2) % Lymph # (Auto) 2.2 (1.2-4.9) X10*3/uL Wallace # (Auto) 0.6 (0.1-1.2) X10*3/uL Eos # (Auto) 0.2 (0.0-0.4) X10*3/uL Baso # (Auto) 0.1 (0.0-0.2) X10*3/uL Abs Immat Gran (auto) 0.07 H (0.00-0.03) X10*3/uL Absolute Neuts (auto) 6.2 (2.0-8.3) x10*3/uL Absolute Nucleated RBC 0.000 (0.0-0.012) X10*3/uL Nucleated RBC % (auto) 0.0 (0.0-0.2) /100WBC D-Dimer High Sensitivty < 150 NG/ML Sodium 139 (135-145) mmol/L Potassium 4.2 (3.3-5.1) mmol/L Chloride 103 (96-108) mmol/L Carbon Dioxide 25 (22-29) mmol/L Anion Gap 15 (12-20) BUN 17 H (9-16) mg/dL Creatinine 1.33 (0.5-1.4) mg/dL Estim Creat Clear Calc 63.5 Estimated GFR 57 Random Glucose 107 (60-115) mg/dL Calcium 9.1 (8.4-10.2) mg/dL Magnesium 1.8 (1.6-2.6) mg/dL Total Bilirubin 0.2 (0.0-1.0) mg/dL AST 21 (5-37) U/L ALT 15 (0-40) U/L Alkaline Phosphatase 53 (39-117) U/L Troponin I High Sens < 2.7 (<3.5-35.0) ng/L C-Reactive Protein 0.46 (< or = 0.50) mg/dL B-Natriuretic Peptide 11 (<100) pg/mL Total Protein 8.1 H (6.5-8.0) g/dL Albumin 4.7 (3.5-5.0) g/dL Influenza Type A (PCR) NEGATIVE (Negative) Influenza Type B (PCR) NEGATIVE (Negative) RSV RNA Qual (PCR) NEGATIVE (Negative) SARS-CoV-2 RNA (RT-PCR) NEGATIVE (Negative) Independent Interpretation I performed an independent interpretation of an: EKG Interpretation: EKG at 08:37 shows normal sinus rhythm at 85 beats per minute. It was my impression that the patient's QT interval might be slightly long. The machine reading of the QTC is 468. In some leads he seems to have a longer QT but perhaps this is a you wave. In some leads he has a normal looking QT interval. No acute ischemic changes. Discharge Plan Discharge Clinical Impression: Shortness of breath Patient Disposition: Home, Self-Care Instructions: How to Use a Metered-Dose Inhaler and a Spacer (ED) Additional Instructions: With regard to the symptoms of shortness of breath your testing is very reassuring. There was no sign of a heart attack. There was no sign of heart failure. There was no sign of a blood clot in your lungs. I think your symptoms may be more related to something like asthma or possibly the effect of smoking on your lungs. I have sent a prescription for a budesonide formoterol inhaler to the [facility] pharmacy on [address] in [place]. Please give yourself 2 puffs of this inhaler when you pick it up and then continue to take 2 puffs in the morning and 2 puffs in the evening. I would do this for a few weeks. You may use the albuterol inhaler several times a day as well as needed if you find it helpful in addition to the budesonide formoterol inhaler. Please continue your efforts to get a new primary care doctor. I believe I have provided the contact information for [facility]'s practice. At this point I think your skin infection is doing well enough that you do not require additional antibiotics. Please return to the emergency room if you feel significantly worse in any way. Prescriptions: New budesonide-formoterol 160-4.5 mcg/actuation HFA aerosol inhaler 2 puff inhalation BID Qty: 10.2 0RF No Action gkltuhekd-AQH-BX-acetaminophen 6.27-77-13-500 mg/15 mL Liquid 30 ml PO Q4-6H PRN (Reason: Cough/pain) Rx Instructions: DNExceed 4 doses/24h methadone [Methadone Intensol] 10 mg/mL Concentrate 80 mg PO DAILY sulfamethoxazole-trimethoprim 800-160 mg tablet 1 tab PO BID Qty: 20 0RF Referrals: [facility] Primary Care, [facility] [Provider Group, Primary Care] Interventions: ED Discharge Assessment Last Done: 12/05/24 12:19 Discharge Date/Time: 12/05/24 12:33 Print Language: Bolivian
[2024-12-05 09:16] LABS: Alanine Aminotransferase 15 U/L (0-40); Albumin Level 4.7 g/dL (3.5-5.0); Alkaline Phosphatase 53 U/L (39-117); Anion Gap 15 (12-20); Aspartate Amino Transferase 21 U/L (5-37); Bilirubin Total 0.2 mg/dL (0.0-1.0); Blood Urea Nitrogen 17 mg/dL (9-16); Calcium 9.1 mg/dL (8.4-10.2); Carbon Dioxide 25 mmol/L (22-29); Chloride 103 mmol/L (96-108); Creatinine Clr Calc Pharmacy 63.5; Estimated Glomerular Filt Rate 57; Glucose Random 107 mg/dL (60-115); Potassium 4.2 mmol/L (3.3-5.1); Sodium 139 mmol/L (135-145); Total Protein 8.1 g/dL (6.5-8.0)
[2024-12-05 09:22] LABS: B Type Natriuretic Peptide 11 pg/mL (<100)
[2024-12-05 09:42] LABS: Influenza A PCR NEGATIVE (Negative); Influenza B PCR NEGATIVE (Negative); Resp Syncy Virus RNA Qual PCR NEGATIVE (Negative); SARS COV2 PCR INHOUSE NEGATIVE (Negative)
--- OUTSIDE RECORDS SUMMARY | 2024-12-05 09:48 | XMS_ITS | Patient Health Record ---
Author Organization [facility] Address [address], [place] [id number] Care Team Providers Care Quality Assurance Coach Name Role Phone NO, PCP Primary Care Provider Desiree Hunt Reason For Referral No Information Encounters Encounter Location Date Provider Diagnosis [facility] [address], [place] [phone] 12/24/2023 Desiree Hunt [facility] [address] [place] [phone] 12/21/2023 Desiree Hunt Plan Of Treatment No Information Insurance Providers Payer Name Payer Address Payer Phone Subscriber Number Group Number Insured Name Patient Relationship to Insured Coverage Start Date Coverage End Date [place] Medicaid PCC [address] [place], [place] [id number] [place] Owens Self - patient is the insured
[2024-12-05 10:01] LABS: C Reactive Protein 0.46 mg/dL (< or = 0.50); Magnesium 1.8 mg/dL (1.6-2.6)
[2024-12-05 10:41] LABS: D Dimer High Sensitivity < 150 NG/ML
[2024-12-05 10:54] LABS: Troponin-I High Sensitivity < 2.7 ng/L (<3.5-35.0)
[2024-12-05] MEDS: Albuterol Sulfate 90 MCG 8 GM INHALER 4 PUFF INHALE (11:36)
[2024-12-05 12:05] VITALS: BP 122/78; PULSE 96; RESP 16; TEMP 36.4; O2SAT 99
--- NOTE | 2024-12-05 12:06 | PC.NURSE ---
LS CTA/tight upper hu; SAO2 99% RA and pt speaking full sentences; spacer and inhaler teaching/return demonstration by pt completed by this RN; aware
[2024-12-05 12:19] VITALS: BP 122/78; PULSE 96; RESP 16; TEMP 36.4; O2SAT 99
== END 2024-12-05 12:33 | disposition home or self-care (01) ==
PROVIDERS: Emergency Provider Emergency Medicine
DX: R06.02 Shortness of breath (principal); F17.200 Nicotine dependence, unspecified, uncomplicated; Z03.818 Encounter for observation for suspected exposure to other biological agents ruled out
CPT/HCPCS: 0241U; 36415; 71046; 80053; 83735; 83880; 84484; 85025; 85379; 86140; 93005; 99284

== ENCOUNTER → 2024-12-05 08:31 | Outpatient (BNV) | payer MEDICAID, SELFPAY | PROVIDERS: Emergency Provider Emergency Medicine; Visit Provider Internal Medicine | DX: R06.02 Shortness of breath (principal) | CPT/HCPCS: 93010 ==

== ENCOUNTER → 2024-12-05 08:50 | Outpatient (BNV) | payer MEDICAID, SELFPAY | PROVIDERS: Emergency Provider Emergency Medicine; Visit Provider Radiology Diagnostic Radiology | DX: R06.02 Shortness of breath (principal) | CPT/HCPCS: 71046 ==